=== PATIENT | female | born 1970 | race Caucasian/White ===

== ENCOUNTER 2023-01-21 16:57 | Inpatient (IN) ==
--- NOTE | 2023-01-21 17:12 | ED Triage Note ---
Date of Service January 21, 2023 History of Present Illness This patient was briefly evaluated while in triage. An abbreviated physical exam was performed. This patient is a 52-year-old Female, history of interstitial lung disease, Raynaud's disease and scleroderma with pulmonary involvement, who presents to the ED for evaluation of shortness of breath. Patient follows with [facility]. Patient is currently on a lung transplant list. Her social services coordinator, nurse Rivera, recommended that she come to the emergency department. Lowest O2 saturation was 82%. Baseline oxygen rate via nasal cannula is 5 to 6 L/min. Physical Exam CONSTITUTIONAL: Healthy and well nourished. Patient does not appear in any acute distress. RESPIRATORY: Lung sounds are distant without obvious rhonchi, crackles or wheezing. CARDIOVASCULAR: Regular rate and rhythm with no murmurs, rubs or gallops. INTEGUMENTARY: No rash or other significant dermatologic conditions noted. HEMATOLOGIC: No ecchymosis or petechiae. PSYCHIATRIC: Positive affect. NEUROLOGIC: No focal neurologic deficits noted. Initial orders for labs and / or imaging were placed and patient was placed in the waiting area until a bed is available. Please see further documentation for the full ED course.
[2023-01-21 18:13] LABS: Allen Test Pos (Pos); Base Excess ABG 0.1 mEq/L (-9-1.8); HCO3 ABG 24 mmol/L (19-24); Oxygen Saturation ABG 94.7 % (90-95); PCO2 ABG 34 mmHg (35-46); PO2 ABG 66 mmHg (80-95); pH ABG 7.45 (7.35-7.45)
[2023-01-21 18:19] LABS: Basophils # (auto) 0.04 K/uL (0.00-0.20); Basophils % (auto) 0.4 %; Eosinophils % (auto) 2.7 %; Hemoglobin 13.1 g/dl (12.0-16.0); Immature Granulocytes # (auto) 0.04 K/uL (0.01-0.20); Immature Granulocytes % (auto) 0.4 %; Lymphocytes # (auto) 2.77 K/uL (1.20-3.40); Lymphocytes % (auto) 25.1 %; Mean Corpuscular Hemoglobin 26.3 pg (25.0-34.0); Mean Corpuscular Volume 82.3 fL (80.0-100.0); Mean Platelet Volume 10.9 fL (9.4-12.4); Monocytes # (auto) 0.65 K/uL (0.11-0.59); Monocytes % (auto) 5.9 %; Neutrophils # (auto) 7.23 K/uL (1.40-6.50); Neutrophils % (auto) 65.5 %; Platelet Count 333 K/uL (130-400); RDW Coefficient of Variation 14.3 % (11.5-14.5); RDW Standard Deviation 42.1 fL (36.4-46.3); Red Blood Count 4.98 M/uL (4.20-5.40); White Blood Count 11.03 K/ul (4.8-10.8)
[2023-01-21 18:34] LABS: Albumin Globulin Ratio 1.4 (0.9-2); Albumin Level 4.3 gm/dl (3.4-5.0); BUN Creatinine Ratio 24.5 (10-20); Bilirubin,Total 0.3 mg/dl (0.2-1.0); Calcium 9.8 mg/dl (8.6-10.3); Creatinine Clr Calc Pharmacy 114.3 ml/min; Est GFR (African American) 128.3 ml/min; Est GFR (Non-African American) 110.7 ml/min; Globulin 3.1 gm/dl (2.5-4.0); Potassium 3.9 mmol/L (3.5-5.1); Total Protein 7.4 gm/dl (6.0-8.3)
[2023-01-21 18:40] LABS: Troponin I High Sensitivity 14.2 pg/ml (0-14)
--- NOTE | 2023-01-21 18:45 | XRay Report ---
SINGLE VIEW CHEST CLINICAL HISTORY: Dyspnea FINDINGS: An AP, portable, upright chest radiograph is obtained. No prior studies are available for c omparison at the time of dictation. The examination is degraded by portable technique and patient rot ation. The patient's head partially obscures the apices. Fullness of the antony may represent lymphaden opathy. The heart is top normal for projection. There is multifocal airspace consolidation throughout the right lung and at the left lung base. No large pleural effusion or pneumothorax is seen. The ske letal structures are osteopenic. The bony thorax is grossly intact. IMPRESSION: Multifocal airspace consolidation suggests pneumonia/aspiration pneumonitis. Clinical cor relation will be required and radiographic follow-up to resolution is recommended. ACT 112: Negative or not required by law. Electronically signed by: Alfredo Jaimes M.D. 01/21/2023 6:44 PM
[2023-01-21 18:58] LABS: Partial Thromboplastin Time 28.2 Seconds (21.0-31.0); Prothrombin Time 11.3 Seconds (9.0-12.0)
[2023-01-21] MEDS ORDERED: OPTIRAY 320 125ml IV ONE (19:06)
[2023-01-21 19:18] LABS: Adenovirus PCR Not Detected (NotDetected); Bordetella parapertussis PCR Not Detected (NotDetected); Bordetella pertussis PCR Not Detected (NotDetected); Chlamydia pneumoniae PCR Not Detected (NotDetected); Coronavirus 229E PCR Not Detected (NotDetected); Coronavirus CoV-2 (COVID19)PCR Not Detected (NotDetected); Coronavirus HKU1 PCR Not Detected (NotDetected); Coronavirus NL63 PCR Not Detected (NotDetected); Coronavirus OC43PCR Not Detected (NotDetected); Human Metapneumovirus PCR Not Detected (NotDetected); Influenza A PCR Not Detected (NotDetected); Influenza B PCR Not Detected (NotDetected); Mycoplasma pneumoniae PCR Not Detected (NotDetected); Parainfluenza Virus 1 PCR Not Detected (NotDetected); Parainfluenza Virus 2 PCR Not Detected (NotDetected); Parainfluenza Virus 3 PCR Not Detected (NotDetected); Parainfluenza Virus 4 PCR Not Detected (NotDetected); Respiratory Syncytial VirusPCR Not Detected (NotDetected); Rhinovirus/Enterovirus PCR Not Detected (NotDetected)
[2023-01-21 19:42] LABS: Appearance Urine Clear (Clear); Bacteria Urine Automated Negative (Negative); Bilirubin Urine Negative (Negative); Blood Urine Negative (Negative); Color Urine Yellow; Glucose Urine UA Negative (Negative); Ketones Urine 2+ (Negative); Leukocyte Esterase Urine 2+ (Negative); Nitrite Urine Negative (Negative); Protein Urine Negative (Negative); RBC Urine Automated 0-4 /hpf (0-4); Specific Gravity Urine 1.018 (1.000-1.030); Urobilinogen Urine Negative (Negative); pH Urine 6.5 (4.5-7.5)
--- NOTE | 2023-01-21 19:44 | CT Scan Report ---
Exam(s): CTA CHEST IV Amt: 110 ML OPTIRAY 320 EXAM: CT Angiography Chest With Intravenous Contrast CLINICAL HISTORY: Reason for exam: Dyspnea, interstitial lung disease. TECHNIQUE: Axial computed tomographic angiography images of the chest with intravenous contrast. CTDI is 40.61 mGy and DLP is 570.71 mGy-cm. Automated exposure control was utilized for the study. A dose lowering technique was utilized adhering to the principles of ALARA. MIP reconstructed images were created and reviewed. COMPARISON: No relevant prior studies available. FINDINGS: Pulmonary arteries: Unremarkable. No acute pulmonary embolism. Aorta: No acute findings. No thoracic aortic aneurysm. Lungs: Bilateral airspace consolidations, with peripheral cystic changes, concerning for developing fibrosis/honeycombing. Correlate for interstitial lung disease (usual interstitial fibrosis). Superimposed pneumonia cannot be excluded. Pleural space: Unremarkable. No significant effusion. No pneumothorax. Heart: Unremarkable. No cardiomegaly. No significant pericardial effusion. No evidence of RV dysfunction. Bones/joints: No acute fracture. No dislocation. Soft tissues: Unremarkable. Lymph nodes: Unremarkable. No enlarged lymph nodes. Kidneys and ureters: Nonobstructing 6 mm LEFT upper pole renal stone. IMPRESSION: 1. No acute pulmonary embolism. 2. Bilateral airspace consolidations, with peripheral cystic changes, concerning for developing fibrosis/honeycombing. Correlate for interstitial lung disease (usual interstitial fibrosis). Superimposed pneumonia cannot be excluded. 3. Nonobstructing 6 mm LEFT upper pole renal stone. Electronically signed by: Jesus Nieves MD 01/21/23 19:43 PM
--- NOTE | 2023-01-21 20:18 | Emergency Department Note ---
History of Present Illness General Chief Complaint: Shortness of Breath/Dyspnea Stated Complaint: SOB, ON TRANSPLANT LIST FOR LUNGS Time Seen by Provider: 01/21/23 17:37 History of Present Illness Provider Complaint: shortness of breath Onset (ago): month(s) (1) Consistency/Duration: + progressively worsening Relieved By: + nothing Exacerbated By: + exertion Known history of: other (COVID 1 month ago. Interstitial lung disease.) Associated symptoms: + cough; no chest pain, no wheezing, no sputum production, no orthopnea or no polydipsia Related Data Home oxygen amount: other (6 L nasal cannula at baseline) Home Medications Medication Instructions Recorded Confirmed Type mycophenolate mofetil 500 mg tablet 1,500 mg PO BID 01/28/21 01/21/23 History furosemide 20 mg tablet 20 mg PO DAILY #30 tabs 04/12/21 01/21/23 Rx ambrisentan 10 mg tablet 10 mg PO QAM 07/16/21 01/21/23 History sildenafil (pulm.hypertension) 20 20 mg PO TID 07/16/21 01/21/23 History mg tablet trazodone 50 mg tablet 50 mg PO HS 11/22/21 01/21/23 History omeprazole 20 mg tablet,delayed 20 mg PO BID 03/03/22 01/21/23 History release famotidine 20 mg tablet 20 mg PO BID #60 tabs 04/15/22 01/21/23 Rx Portable Oxygen 05/16/22 01/21/23 History metronidazole 0.75 % topical cream 1 applic topical BID 01/21/23 01/21/23 History Allergies Allergy/AdvReac Type Severity Reaction Status Date / Time povidone-iodine Allergy SWELLING Verified 01/21/23 17:41 [From Betadine] soap [From Betadine] Allergy SWELLING Verified 01/21/23 17:41 Past Med/Surg History Medical History History of anesthesia reaction slow to wake up O2 dependent continuous 3 L at rest 4 L w/ activity Interstitial lung disease from scleroderma-- pulmon dr karthik NICOLAS last visit 10/2021 Raynaud's disease Pulmonary hypertension currently being evaluated for double lung transplant at [facility] 09/2021 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 Surgical History History of laparoscopic appendectomy History of tooth extraction History of skin surgery to remove excess skin after weight loss ---Slow to wake up Family History Grandmother Diabetes Aunt Myocardial infarction Uncle Myocardial infarction Other No family history of adverse response to anesthesia Denies family history of Ovarian cancer Prostate cancer Breast cancer Colorectal cancer Social History Smoking Status: Unknown if ever smoked Second Hand Exposure: No; Do You Dip or Chew Tobacco: No; Hx Alcohol Use: No Hx Substance Use: No Preferred Language: Mohawk Communication Ability: Effective Visual Impairment: No Limitations Hearing Ability: Normal 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 Beliefs That Will Affect Care: None marital status: Current Living Situation: Spouse current occupational status: unemployed How many Children do You have: 3 Feels Safe at Home: Yes Childhood Exposure to Second-Hand Smoke: No Diet: regular caffeine: Yes during the past year weight has: remained stable Dental Care, Regularly: Yes Physical Activity Frequency: 3-4 Times per Week Seatbelt Use: always Sunscreen Use: Yes Assistive Devices: Denture - Upper, Glasses and Oxygen - Continuous Physical Exam 2 Vital Signs: Vital Signs - 24 hr 01/21/23 17:08 01/21/23 17:30 01/21/23 17:55 Temperature 36.9 C Temperature Source Temporal Artery Sc an Pulse Rate 130 H 125 H 126 H Pulse Rate [Apical ] Pulse Rate from Sp O2 Sensor 129 H Respiratory Rate 22 41 H Respiratory Effort / Characteristics Non-Labored Sponta neous Respiratory Depth Normal Blood Pressure 95/73 L Blood Pressure [Ri ght Arm] Blood Pressure Francesca n 80 Blood Pressure Francesca n [Right Arm] Pulse Oximetry 89 L 90 Oxygen Delivery Me thod Nasal Cannula Nasal Cannula Oxygen Flow Rate 8 4 Sepsis Recent Feve r Within 48 Hours No Sepsis New/Unexpla ined Change in Men irvin Status N/A Sepsis Action Take n by Nursing No Action Required Oxygen Flow Rate - Titration Pulse Oximetry Pos t Tiitration 01/21/23 18:00 01/21/23 18:01 01/21/23 18:01 Temperature Temperature Source Pulse Rate Pulse Rate [Apical ] 125 H Pulse Rate from Sp O2 Sensor Respiratory Rate 26 H Respiratory Effort / Characteristics Respiratory Depth Blood Pressure Blood Pressure [Ri ght Arm] 114/78 Blood Pressure Francesca n Blood Pressure Francesca n [Right Arm] 90 Pulse Oximetry 92 Oxygen Delivery Me thod Nasal Cannula Nasal Cannula Nasal Cannula Oxygen Flow Rate 6 Sepsis Recent Feve r Within 48 Hours Sepsis New/Unexpla ined Change in Men irvin Status Sepsis Action Take n by Nursing Oxygen Flow Rate - Titration 6 Pulse Oximetry Pos t Tiitration 91 01/21/23 18:30 01/21/23 18:30 01/21/23 19:00 Temperature Temperature Source Pulse Rate 127 H 119 H Pulse Rate [Apical ] Pulse Rate from Sp O2 Sensor 127 H Respiratory Rate 33 H 22 Respiratory Effort / Characteristics Respiratory Depth Blood Pressure 108/86 Blood Pressure [Ri ght Arm] Blood Pressure Francesca n 92 Blood Pressure Francesca n [Right Arm] Pulse Oximetry 93 Oxygen Delivery Me thod Nasal Cannula Oxygen Flow Rate 6 Sepsis Recent Feve r Within 48 Hours Sepsis New/Unexpla ined Change in Men irvin Status Sepsis Action Take n by Nursing Oxygen Flow Rate - Titration Pulse Oximetry Pos t Tiitration 01/21/23 19:22 01/21/23 19:22 01/21/23 19:30 Temperature Temperature Source Pulse Rate 120 H Pulse Rate [Apical ] Pulse Rate from Sp O2 Sensor 121 H Respiratory Rate 25 H Respiratory Effort / Characteristics Respiratory Depth Blood Pressure 110/83 98/82 L Blood Pressure [Ri ght Arm] Blood Pressure Francesca n 91 88 Blood Pressure Francesca n [Right Arm] Pulse Oximetry 91 Oxygen Delivery Me thod Oxygen Flow Rate Sepsis Recent Feve r Within 48 Hours Sepsis New/Unexpla ined Change in Men irvin Status Sepsis Action Take n by Nursing Oxygen Flow Rate - Titration Pulse Oximetry Pos t Tiitration 01/21/23 19:30 Temperature Temperature Source Pulse Rate 118 H Pulse Rate [Apical ] Pulse Rate from Sp O2 Sensor 122 H Respiratory Rate 20 Respiratory Effort / Characteristics Respiratory Depth Blood Pressure Blood Pressure [Ri ght Arm] Blood Pressure Francesca n Blood Pressure Francesca n [Right Arm] Pulse Oximetry 97 Oxygen Delivery Me thod Oxygen Flow Rate Sepsis Recent Feve r Within 48 Hours Sepsis New/Unexpla ined Change in Men irvin Status Sepsis Action Take n by Nursing Oxygen Flow Rate - Titration Pulse Oximetry Pos t Tiitration Physical Exam: Physical Exam GENERAL: oriented to person, place, and time. appears well-developed and well- nourished. HENT: Exam performed. - Head: Normocephalic and atraumatic. EYES: Conjunctivae and EOM are normal. Right eye exhibits no discharge. Left eye exhibits no discharge. No scleral icterus. NECK: Normal range of motion. Neck supple. No JVD present. CV: Tachycardic rate, regular rhythm, normal heart sounds and intact distal pulses. There is no peripheral edema. Palpable radial pulses bue. PULM/CHEST: Rhonchi bilaterally. ABD: The abdomen is soft. There is no tenderness. NEURO: Motor and sensation grossly intact. SKIN: Skin is warm and dry. He is not diaphoretic. PSYCH: normal mood and affect. Behavior is normal. Judgment and thought content normal. Course Course 1736: The patient was evaluated in room C2. A complete history and physical exam was performed Cardiac monitoring: An order was placed for continuous cardiac monitoring. The monitor shows a rate of 110 with sinus tachycardia rhythm interpreted by me 2027: Vital signs stable on supplemental oxygen 6 L which is the patient's baseline. White blood cell count 11.03 neutrophils 7.23. Coagulation studies within normal limits. ABG shows a arterial pH 7.45 pCO2 34 pO2 66 bicarb 24 oxygen saturation 94.7 on 6 L of oxygen. High-sensitivity troponin 14.2 BNP 275. BioFire negative. Urinalysis negative. Imaging shows no acute pulmonary embolus bilateral airspace consolidations concerning for developing fibrosis/honeycombing with history of interstitial lung disease. Superimposed pneumonia cannot be excluded. I called the patient's on-call pulmonology team at [facility] [phone]. I spoke with Hattie Mariee NP. She states she is not very familiar with the patient's case but got a email from a Lesli VET TECH now about the patient and she states the patient might need to be transferred. She recommends calling the transfer center [phone] and speaking with a Dr. Treviño who is on-call. 2044: Vital signs stable on supplemental oxygen at patient's baseline. Spoke with Dr. Kamila Prasad pulmonology who is familiar with the patient's case. He states he does not see a need to transfer the patient at this time and he states that there are no beds available at his facility at this time anyways. He recommends that the patient be admitted and be treated for pneumonia with cefepime and vancomycin at this time. He recommends patient have an echo in the morning. He states his team will contact the admitting team in the morning to review the results of the echo and determine further care for the patient. He recommends no steroids at this time. 2054: Discussed the case with Dr. Chapman [facility] hospitalist will admit the patient. Administered Medications Discontinued Medications Ioversol (Optiray 320 125ml) 119 ml IV ONCE ONE Stop: 01/21/23 19:07 Last Admin: 01/21/23 19:07 Dose: 119 ml Documented By: ARLEN Medical Decision Making Laboratory Data Attestation: I reviewed the patient's lab results. 01/21/23 17:49 01/21/23 17:49 Lab Results 01/21/23 01/21/23 01/21/23 Range/Units 17:49 17:53 18:02 WBC 11.03 H (4.8-10.8) K/ul RBC 4.98 (4.20-5.40) M/uL Hgb 13.1 (12.0-16.0) g/dl Hct 41.0 (37.0-47.0) % MCV 82.3 (80.0-100.0) fL MCH 26.3 (25.0-34.0) pg MCHC 32.0 (32.0-36.0) g/dL RDW Std Deviation 42.1 (36.4-46.3) fL RDW Coeff of [place] 14.3 (11.5-14.5) % Plt Count 333 (130-400) K/uL MPV 10.9 (9.4-12.4) fL Immature Gran % (Auto) 0.4 % Neut % (Auto) 65.5 % Lymph % (Auto) 25.1 % [place] % (Auto) 5.9 % Eos % (Auto) 2.7 % Baso % (Auto) 0.4 % Neut # (Auto) 7.23 H (1.40-6.50) K/uL Lymph # (Auto) 2.77 (1.20-3.40) K/uL [place] # (Auto) 0.65 H (0.11-0.59) K/uL Eos # (Auto) 0.30 (0.00-0.50) K/uL Baso # (Auto) 0.04 (0.00-0.20) K/uL Immature Gran # (Auto) 0.04 (0.01-0.20) K/uL PT 11.3 (9.0-12.0) Seconds INR 1.0 (0.9-1.1) APTT 28.2 (21.0-31.0) Seconds PTT Ratio 1.0 ABG pH 7.45 (7.35-7.45) ABG pCO2 34 L (35-46) mmHg ABG pO2 66 L (80-95) mmHg ABG HCO3 24 (19-24) mmol/L ABG O2 Saturation 94.7 (90-95) % ABG Base Excess 0.1 (-9-1.8) mEq/L Champ Test Pos (Pos) Oxygen Given 6L O2 Sodium 139 (136-145) mmol/L Potassium 3.9 (3.5-5.1) mmol/L Chloride 103 (98-107) mmol/L Carbon Dioxide 27 (21-32) mmol/L Anion Gap 9 (3-11) BUN 13 (6-23) mg/dl Creatinine 0.53 L (0.6-1.2) mg/dl Est Cr Clr Drug Dosing 114.3 ml/min Est GFR ( Amer) 128.3 ml/min Est GFR (Non-Af Amer) 110.7 ml/min BUN/Creatinine Ratio 24.5 H (10-20) Glucose 95 (70-99(Fasting)) mg/dl Calcium 9.8 (8.6-10.3) mg/dl Total Bilirubin 0.3 (0.2-1.0) mg/dl AST 17 (13-39) U/L ALT 16 (7-52) U/L Alkaline Phosphatase 93 (34-104) U/L Troponin I High Sens 14.2 H (0-14) pg/ml B-Natriuretic Peptide 275 H (0-100) pg/ml Total Protein 7.4 (6.0-8.3) gm/dl Albumin 4.3 (3.4-5.0) gm/dl Globulin 3.1 (2.5-4.0) gm/dl Albumin/Globulin Ratio 1.4 (0.9-2) Urine Color Urine Appearance (Clear) Urine pH (4.5-7.5) Ur Specific [place] (1.000-1.030) Urine Protein (Negative) Urine Glucose (UA) (Negative) Urine Ketones (Negative) Urine Blood (Negative) Urine Nitrite (Negative) Urine Bilirubin (Negative) Urine Urobilinogen (Negative) Ur Leukocyte Esterase (Negative) Urine WBC (Auto) (0-5) /hpf Urine RBC (Auto) (0-4) /hpf U Hyaline Cast (Auto) (0-5) /lpf U Epithel Cells (Auto) (0-5) /lpf Urine Bacteria (Auto) (Negative) Adenovirus (PCR) Not Detected (NotDetected) B. pertussis DNA (PCR) Not Detected (NotDetected) B.parapertussis DNA PCR Not Detected (NotDetected) C. pneumoniae DNA (PCR) Not Detected (NotDetected) Coronavirus OC43 (PCR) Not Detected (NotDetected) Coronavirus HKU1 (PCR) Not Detected (NotDetected) Coronavirus 229E (PCR) Not Detected (NotDetected) SARS-CoV-2 (PCR) Not Detected (NotDetected) Coronavirus NL63 (PCR) Not Detected (NotDetected) Human Metapneumovir PCR Not Detected (NotDetected) Influenza Type A (PCR) Not Detected (NotDetected) Influenza Type B (PCR) Not Detected (NotDetected) M. pneumoniae (PCR) Not Detected (NotDetected) Parainfluenza 1 (PCR) Not Detected (NotDetected) Parainfluenza 2 (PCR) Not Detected (NotDetected) Parainfluenza 3 (PCR) Not Detected (NotDetected) Parainfluenza 4 (PCR) Not Detected (NotDetected) RSV (PCR) Not Detected (NotDetected) Entero/Rhino (PCR) Not Detected (NotDetected) 01/21/23 Range/Units 19:22 WBC (4.8-10.8) K/ul RBC (4.20-5.40) M/uL Hgb (12.0-16.0) g/dl Hct (37.0-47.0) % MCV (80.0-100.0) fL MCH (25.0-34.0) pg MCHC (32.0-36.0) g/dL RDW Std Deviation (36.4-46.3) fL RDW Coeff of Nubia (11.5-14.5) % Plt Count (130-400) K/uL MPV (9.4-12.4) fL Immature Gran % (Auto) % Neut % (Auto) % Lymph % (Auto) % [place] % (Auto) % Eos % (Auto) % Baso % (Auto) % Neut # (Auto) (1.40-6.50) K/uL Lymph # (Auto) (1.20-3.40) K/uL [place] # (Auto) (0.11-0.59) K/uL Eos # (Auto) (0.00-0.50) K/uL Baso # (Auto) (0.00-0.20) K/uL Immature Gran # (Auto) (0.01-0.20) K/uL PT (9.0-12.0) Seconds INR (0.9-1.1) APTT (21.0-31.0) Seconds PTT Ratio ABG pH (7.35-7.45) ABG pCO2 (35-46) mmHg ABG pO2 (80-95) mmHg ABG HCO3 (19-24) mmol/L ABG O2 Saturation (90-95) % ABG Base Excess (-9-1.8) mEq/L Champ Test (Pos) Oxygen Given Sodium (136-145) mmol/L Potassium (3.5-5.1) mmol/L Chloride (98-107) mmol/L Carbon Dioxide (21-32) mmol/L Anion Gap (3-11) BUN (6-23) mg/dl Creatinine (0.6-1.2) mg/dl Est Cr Clr Drug Dosing ml/min Est GFR ( Amer) ml/min Est GFR (Non-Af Amer) ml/min BUN/Creatinine Ratio (10-20) Glucose (70-99(Fasting)) mg/dl Calcium (8.6-10.3) mg/dl Total Bilirubin (0.2-1.0) mg/dl AST (13-39) U/L ALT (7-52) U/L Alkaline Phosphatase (34-104) U/L Troponin I High Sens (0-14) pg/ml B-Natriuretic Peptide (0-100) pg/ml Total Protein (6.0-8.3) gm/dl Albumin (3.4-5.0) gm/dl Globulin (2.5-4.0) gm/dl Albumin/Globulin Ratio (0.9-2) Urine Color Yellow Urine Appearance Clear (Clear) Urine pH 6.5 (4.5-7.5) Ur Specific [place] 1.018 (1.000-1.030) Urine Protein Negative (Negative) Urine Glucose (UA) Negative (Negative) Urine Ketones 2+ H (Negative) Urine Blood Negative (Negative) Urine Nitrite Negative (Negative) Urine Bilirubin Negative (Negative) Urine Urobilinogen Negative (Negative) Ur Leukocyte Esterase 2+ H (Negative) Urine WBC (Auto) 10-30 H (0-5) /hpf Urine RBC (Auto) 0-4 (0-4) /hpf U Hyaline Cast (Auto) 1-5 (0-5) /lpf U Epithel Cells (Auto) 10-20 H (0-5) /lpf Urine Bacteria (Auto) Negative (Negative) Adenovirus (PCR) (NotDetected) B. pertussis DNA (PCR) (NotDetected) B.parapertussis DNA PCR (NotDetected) C. pneumoniae DNA (PCR) (NotDetected) Coronavirus OC43 (PCR) (NotDetected) Coronavirus HKU1 (PCR) (NotDetected) Coronavirus 229E (PCR) (NotDetected) SARS-CoV-2 (PCR) (NotDetected) Coronavirus NL63 (PCR) (NotDetected) Human Metapneumovir PCR (NotDetected) Influenza Type A (PCR) (NotDetected) Influenza Type B (PCR) (NotDetected) M. pneumoniae (PCR) (NotDetected) Parainfluenza 1 (PCR) (NotDetected) Parainfluenza 2 (PCR) (NotDetected) Parainfluenza 3 (PCR) (NotDetected) Parainfluenza 4 (PCR) (NotDetected) RSV (PCR) (NotDetected) Entero/Rhino (PCR) (NotDetected) Imaging Data Radiologist's Impression: Chest CTA 01/21/23 17:16 Exam(s): CTA CHEST IV Amt: 110 ML OPTIRAY 320 EXAM: CT Angiography Chest With Intravenous Contrast CLINICAL HISTORY: Reason for exam: Dyspnea, interstitial lung disease. TECHNIQUE: Axial computed tomographic angiography images of the chest with intravenous contrast. CTDI is 40.61 mGy and DLP is 570.71 mGy-cm. Automated exposure control was utilized for the study. A dose lowering technique was utilized adhering to the principles of ALARA. MIP reconstructed images were created and reviewed. COMPARISON: No relevant prior studies available. FINDINGS: Pulmonary arteries: Unremarkable. No acute pulmonary embolism. Aorta: No acute findings. No thoracic aortic aneurysm. Lungs: Bilateral airspace consolidations, with peripheral cystic changes, concerning for developing fibrosis/honeycombing. Correlate for interstitial lung disease (usual interstitial fibrosis). Superimposed pneumonia cannot be excluded. Pleural space: Unremarkable. No significant effusion. No pneumothorax. Heart: Unremarkable. No cardiomegaly. No significant pericardial effusion. No evidence of RV dysfunction. Bones/joints: No acute fracture. No dislocation. Soft tissues: Unremarkable. Lymph nodes: Unremarkable. No enlarged lymph nodes. Kidneys and ureters: Nonobstructing 6 mm LEFT upper pole renal stone. IMPRESSION: 1. No acute pulmonary embolism. 2. Bilateral airspace consolidations, with peripheral cystic changes, concerning for developing fibrosis/honeycombing. Correlate for interstitial lung disease (usual interstitial fibrosis). Superimposed pneumonia cannot be excluded. 3. Nonobstructing 6 mm LEFT upper pole renal stone. Electronically signed by: Jesus Nieves MD 01/21/23 19:43 PM Chest X-Ray 01/21/23 18:17 SINGLE VIEW CHEST CLINICAL HISTORY: Dyspnea FINDINGS: An AP, portable, upright chest radiograph is obtained. No prior studies are available for comparison at the time of dictation. The examination is degraded by portable technique and patient rotation. The patient's head partially obscures the apices. Fullness of the antony may represent lymphadenopathy. The heart is top normal for projection. There is multifocal airspace consolidation throughout the right lung and at the left lung base. No large pleural effusion or pneumothorax is seen. The skeletal structures are osteopenic. The bony thorax is grossly intact. IMPRESSION: Multifocal airspace consolidation suggests pneumonia/aspiration pneumonitis. Clinical correlation will be required and radiographic follow-up to resolution is recommended. ACT 112: Negative or not required by law. Electronically signed by: Alfredo Jaimes M.D. 01/21/2023 6:44 PM ECG Data Attestation: I personally reviewed and interpreted this ECG as follows: Interpretation: Sinus tachycardia with rate of 127. NH 174 QRS [address] elevation or ST depression. [facility] Narrative 1737: The patient was evaluated in room C2. A complete history and physical exam was performed Cardiac monitoring: An order was placed for continuous cardiac monitoring. The monitor shows a rate of 110 with sinus tachycardia rhythm interpreted by [place] 2027: Vital signs stable on supplemental oxygen 6 L which is the patient's baseline. White blood cell count 11.03 neutrophils 7.23. Coagulation studies within normal limits. ABG shows a arterial pH 7.45 pCO2 34 pO2 66 bicarb 24 oxygen saturation 94.7 on 6 L of oxygen. High-sensitivity troponin 14.2 BNP 275. BioFire negative. Urinalysis negative. Imaging shows no acute pulmonary embolus bilateral airspace consolidations concerning for developing fibrosis/honeycombing with history of interstitial lung disease. Superimposed pneumonia cannot be excluded. I called the patient's on-call pulmonology team at [facility] [phone]. I spoke with Hattie Mariee NP. She states she is not very familiar with the patient's case but got a email from a Lesli VET TECH now about the patient and she states the patient might need to be transferred. She recommends calling the transfer center [phone] and speaking with a Dr. Treviño who is on-call. 2044: Vital signs stable on supplemental oxygen at patient's baseline. Spoke with Dr. Kamila Prasad pulmonology who is familiar with the patient's case. He states he does not see a need to transfer the patient at this time and he states that there are no beds available at his facility at this time anyways. He recommends that the patient be admitted and be treated for pneumonia with cefepime and vancomycin at this time. He recommends patient have an echo in the morning. He states his team will contact the admitting team in the morning to review the results of the echo and determine further care for the patient. He recommends no steroids at this time. 2054: Discussed the case with Dr. Ari Blanco hospitalist will admit the patient. Impression & Plan Scleroderma with pulmonary involvement, Pneumonia, Interstitial lung disease Discharge Plan Visit Data Chief Complaint: Shortness of Breath/Dyspnea Stated Complaint: SOB, ON TRANSPLANT LIST FOR LUNGS ED Provider: Mitchell Hodges Discharge Problem: Scleroderma with pulmonary involvement, Pneumonia, Interstitial lung disease Patient Disposition: Admitted As Inpatient Forms Stand Alone Forms: My [facility] Prescriptions Prescriptions: No Action omeprazole 20 mg tablet,delayed release (DR/EC) 20 mg PO BID famotidine 20 mg tablet 20 mg PO BID Qty: 60 2RF (DME) Portable Oxygen Misc See Rx Instructions .Route Rx Instructions: continous-scleraderma 3lpm mycophenolate mofetil 500 mg tablet 1,500 mg PO BID ambrisentan 10 mg tablet 10 mg PO QAM sildenafil (pulm.hypertension) 20 mg tablet 20 mg PO TID Rx Instructions: administer doses at least 4-6 hours apart furosemide 20 mg tablet 20 mg PO DAILY Qty: 30 2RF metronidazole 0.75 % cream 1 applic TOPICAL BID trazodone 50 mg Tablet 50 mg PO HS Referrals Referrals: Peter Larsen DO [Primary Care Provider] - Discharge Problem: Pneumonia Qualifiers: Pneumonia type: due to unspecified organism Laterality: unspecified laterality Lung location: unspecified part of lung Qualified Code(s): J18.9 - Pneumonia, unspecified organism
[2023-01-21] MEDS ORDERED: VANCOMYCIN HCL 1,000 MG in SODIUM CHLORIDE 0.9% 500 ML IV STA (20:50)
[2023-01-21] MEDS ORDERED: CEFEPIME 2,000 MG/20 ML VIAL IV STA (20:50)
[2023-01-21] MEDS ORDERED: VANCOMYCIN CONSULT ACTIVE PRN ×2 (20:50→22:59)
[2023-01-21] MEDS ORDERED: MYCOPHENOLATE MOFETIL 250 MG CAP PO STA (21:25)
[2023-01-21] MEDS ORDERED: SILDENAFIL CITRATE 20 MG TABLET PO STA (21:25)
[2023-01-21] MEDS ORDERED: traZODone HCL 50 MG TAB PO ONE (21:25)
--- NOTE | 2023-01-21 21:28 | History & Physical Report ---
Date of Service January 21, 2023 Assessment & Plan (1) Pneumonia: Plan: 52yo female with history of systemic scleroderma, interstitial lung disease, chronic hypoxic respiratory failure on home O2 presenting with ongoing progressive dyspnea. Symptoms present x 1 month with acute worsening over the last 2 weeks. Patient follows at [facility] - Dr. Treviño was contacted by ER attending and has assisted with formulating the plan of care. His team will contact our hospitalist team tomorrow. Concern for PNA -Admit to medical with telemetry -Follow cultures -Check procalcitonin -Check sputum sample -Antibiotic coverage with Vancomycin and Cefepime -Check MRSA Nares -Check 2D echo (2) Interstitial lung disease: Plan: Patient with ILD, chronic hypoxic respiratory failure and pulmonary hypertension. She follows at [facility] -Continue Sildenafil -Continue Cellcept -Supplemental O2 -Patient may take her home Ambrisentan when she brings it History of Present Illness Chief Complaint: shortness of breath Primary Care Provider: Peter Larsen DO Yarely Stephens is a pleasant 52yo female presenting with shortness of breath. Patient has history of advanced scleroderma on immunosuppression therapy with CellCept, interstitial lung disease with chronic hypoxic respiratory failure on home O2 (5.5L at rest and 7L with ambulation). She had Covid-19 infection in November which was mild - no steroids, Remdesivir or anti-viral therapy needed. She reports that her breathing has never returned to baseline after having Covid. She has had progressive SOB and dyspnea with minimal exertion which has become much worse over the last two weeks. She has increased her supplemental O2 to 6L at rest and 8L with ambulation. She denies fever but has fatigue, poor appetite and decreased oral intake as well as chest tightness and cough - usually dry but occasionally productive for clear or brown sputum. She additionally reports worsening bilateral LE edema which does not improve with elevation and orthopnea. Patient follows with Pulmonary Clinic/Transplant services at [facility] - Dr. Treviño. She has been listed for transplant but is currently on hold. Dr. Treviño was contacted by the ER provider and provided instructions as below. She follows with Rheumatology and Dermatology for her Scleroderma. In the ER patient afebrile, tachycardic, hypoxic on arrival at 89% on 8L NC. Presently she is improved - 97% on 6L ER Course: Cefepime and Vancomycin ordered - not yet administered Allergies Allergy/AdvReac Type Severity Reaction Status Date / Time povidone-iodine Allergy SWELLING Verified 01/21/23 17:41 [From Betadine] soap [From Betadine] Allergy SWELLING Verified 01/21/23 17:41 Home Medications Medication Instructions Recorded Confirmed Type mycophenolate mofetil 500 mg tablet 1,500 mg PO BID 01/28/21 01/21/23 History furosemide 20 mg tablet 20 mg PO DAILY #30 tabs 04/12/21 01/21/23 Rx ambrisentan 10 mg tablet 10 mg PO QAM 07/16/21 01/21/23 History sildenafil (pulm.hypertension) 20 20 mg PO TID 07/16/21 01/21/23 History mg tablet trazodone 50 mg tablet 50 mg PO HS 11/22/21 01/21/23 History omeprazole 20 mg tablet,delayed 20 mg PO BID 03/03/22 01/21/23 History release famotidine 20 mg tablet 20 mg PO BID #60 tabs 04/15/22 01/21/23 Rx Portable Oxygen 05/16/22 01/21/23 History metronidazole 0.75 % topical cream 1 applic topical BID 01/21/23 01/21/23 History Past Med/Surg History Medical History History of anesthesia reaction slow to wake up O2 dependent continuous 3 L at rest 4 L w/ activity Interstitial lung disease from scleroderma-- pulmon dr karthik NICOLAS last visit 10/2021 Raynaud's disease Pulmonary hypertension currently being evaluated for double lung transplant at [facility] 09/2021 Scleroderma with pulmonary involvement 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 Dr sameer NICOLAS Surgical History History of laparoscopic appendectomy History of tooth extraction History of skin surgery to remove excess skin after weight loss ---Slow to wake up Family History Grandmother Diabetes Aunt Myocardial infarction Uncle Myocardial infarction Other No family history of adverse response to anesthesia Denies family history of Ovarian cancer Prostate cancer Breast cancer Colorectal cancer Social History Smoking Status: Unknown if ever smoked Second Hand Exposure: No; Do You Dip or Chew Tobacco: No; Hx Alcohol Use: No Hx Substance Use: No Preferred Language: Mauritian Communication Ability: Effective Visual Impairment: No Limitations Hearing Ability: Normal Pattern Puncher Required: No Beliefs That Will Affect Care: None marital status: Current Living Situation: Spouse current occupational status: unemployed How many Children do You have: 3 Other Information That Helps Us Care for You: No Feels Safe at Home: Yes Safety Concerns: Feels Safe At This Time Childhood Exposure to Second-Hand Smoke: No Diet: regular caffeine: Yes during the past year weight has: remained stable Dental Care, Regularly: Yes Physical Activity Frequency: 3-4 Times per Week Seatbelt Use: always Sunscreen Use: Yes Assistive Devices: Denture - Upper, Glasses and Oxygen - Continuous Review of Systems Review of Systems: All systems reviewed & are unremarkable except as noted in HPI & below Physical Exam Physical Exam: General: patient sitting upright in bed, NAD, non-toxic in appearance, AA&O x 4 Skin: warm, dry, intact, tightening of skin of bilateral fingers and anterior chest consistent with scleroderma diagnosis, no bleeding or evidence of infection HEENT: NC/AT, PERRL, EOMI, anicteric sclera, conjunctiva without injection, external ear normal to inspection and nontender, nares patent, slightly dry mucus membranes, dentition intact, no oropharyngeal lesions, neck supple, trachea midline, no LAD, no thyromegaly, no JVD Heart: +S1/S2, regular, tachycardic, no m/r/g Lungs: patient appears mildly tachypneic but in NAD, speaking in complete sentences, equal air entry bilaterally with normal chest wall mechanics, diffuse end-inspiratory crackles appreciated bilaterallyl R > L, no rhonchi or wheezes, diminished breath sounds at right base Abd: +BS, soft, NT/ND, no masses/organomegaly/ascites Ext: warm, 2+ pulses in UE/LE bilaterally, digital clubbing appreciated on bilateral fingers, 1+ non-pitting edema of bilateral LE Neuro: nonfocal, patient AA&O x 4, speech intact, no facial droop, moving all extremities on command with equal strength 5/5 Results & Data Results & Data Vital Signs (Past 12 Hours) Vital Signs Temp Pulse Pulse Resp BP BP Pulse Ox 01/21/23 19:30 118 H 20 97 01/21/23 19:30 98/82 L 01/21/23 19:22 120 H 25 H 91 01/21/23 19:22 110/83 01/21/23 19:00 119 H 22 01/21/23 18:30 127 H 33 H 93 01/21/23 18:30 108/86 01/21/23 18:01 01/21/23 18:01 125 H 26 H 114/78 92 01/21/23 18:00 01/21/23 17:55 126 H 01/21/23 17:30 125 H 41 H 90 01/21/23 17:08 36.9 C 130 H 22 95/73 L 89 L O2 Del Method O2 Flow Rate 01/21/23 19:30 01/21/23 19:30 01/21/23 19:22 01/21/23 19:22 01/21/23 19:00 01/21/23 18:30 Nasal Cannula 6 01/21/23 18:30 01/21/23 18:01 Nasal Cannula 01/21/23 18:01 Nasal Cannula 6 01/21/23 18:00 Nasal Cannula 01/21/23 17:55 01/21/23 17:30 Nasal Cannula 4 01/21/23 17:08 Nasal Cannula 8 Laboratory Results Laboratory Results WBC 11.03 K/ul (4.8-10.8) H 01/21/23 17:49 RBC 4.98 M/uL (4.20-5.40) 01/21/23 17:49 Hgb 13.1 g/dl (12.0-16.0) 01/21/23 17:49 Hct 41.0 % (37.0-47.0) 01/21/23 17:49 MCV 82.3 fL (80.0-100.0) 01/21/23 17:49 MCH 26.3 pg (25.0-34.0) 01/21/23 17:49 MCHC 32.0 g/dL (32.0-36.0) 01/21/23 17:49 RDW Std Deviation 42.1 fL (36.4-46.3) 01/21/23 17:49 RDW Coeff of Nubia 14.3 % (11.5-14.5) 01/21/23 17:49 Plt Count 333 K/uL (130-400) 01/21/23 17:49 MPV 10.9 fL (9.4-12.4) 01/21/23 17:49 Immature Gran % (Auto) 0.4 % 01/21/23 17:49 Neut % (Auto) 65.5 % 01/21/23 17:49 Lymph % (Auto) 25.1 % 01/21/23 17:49 [place] % (Auto) 5.9 % 01/21/23 17:49 Eos % (Auto) 2.7 % 01/21/23 17:49 Baso % (Auto) 0.4 % 01/21/23 17:49 Neut # (Auto) 7.23 K/uL (1.40-6.50) H 01/21/23 17:49 Lymph # (Auto) 2.77 K/uL (1.20-3.40) 01/21/23 17:49 [place] # (Auto) 0.65 K/uL (0.11-0.59) H 01/21/23 17:49 Eos # (Auto) 0.30 K/uL (0.00-0.50) 01/21/23 17:49 Baso # (Auto) 0.04 K/uL (0.00-0.20) 01/21/23 17:49 Immature Gran # (Auto) 0.04 K/uL (0.01-0.20) 01/21/23 17:49 PT 11.3 Seconds (9.0-12.0) 01/21/23 17:49 INR 1.0 (0.9-1.1) 01/21/23 17:49 APTT 28.2 Seconds (21.0-31.0) 01/21/23 17:49 PTT Ratio 1.0 01/21/23 17:49 ABG pH 7.45 (7.35-7.45) 01/21/23 18:02 ABG pCO2 34 mmHg (35-46) L 01/21/23 18:02 ABG pO2 66 mmHg (80-95) L 01/21/23 18:02 ABG HCO3 24 mmol/L (19-24) 01/21/23 18:02 ABG O2 Saturation 94.7 % (90-95) 01/21/23 18:02 ABG Base Excess 0.1 mEq/L (-9-1.8) 01/21/23 18:02 Champ Test Pos (Pos) 01/21/23 18:02 Oxygen Given 6L O2 01/21/23 18:02 Sodium 139 mmol/L (136-145) 01/21/23 17:49 Potassium 3.9 mmol/L (3.5-5.1) 01/21/23 17:49 Chloride 103 mmol/L (98-107) 01/21/23 17:49 Carbon Dioxide 27 mmol/L (21-32) 01/21/23 17:49 Anion Gap 9 (3-11) 01/21/23 17:49 BUN 13 mg/dl (6-23) 01/21/23 17:49 Creatinine 0.53 mg/dl (0.6-1.2) L 01/21/23 17:49 Est Cr Clr Drug Dosing 114.3 ml/min 01/21/23 17:49 Est GFR ( Amer) 128.3 ml/min 01/21/23 17:49 Est GFR (Non-Af Amer) 110.7 ml/min 01/21/23 17:49 BUN/Creatinine Ratio 24.5 (10-20) H 01/21/23 17:49 Glucose 95 mg/dl (70-99(Fasting)) 01/21/23 17:49 Calcium 9.8 mg/dl (8.6-10.3) 01/21/23 17:49 Total Bilirubin 0.3 mg/dl (0.2-1.0) 01/21/23 17:49 AST 17 U/L (13-39) 01/21/23 17:49 ALT 16 U/L (7-52) 01/21/23 17:49 Alkaline Phosphatase 93 U/L (34-104) 01/21/23 17:49 Troponin I High Sens 14.2 pg/ml (0-14) H 01/21/23 17:49 B-Natriuretic Peptide 275 pg/ml (0-100) H 01/21/23 17:49 Total Protein 7.4 gm/dl (6.0-8.3) 01/21/23 17:49 Albumin 4.3 gm/dl (3.4-5.0) 01/21/23 17:49 Globulin 3.1 gm/dl (2.5-4.0) 01/21/23 17:49 Albumin/Globulin Ratio 1.4 (0.9-2) 01/21/23 17:49 Urine Color Yellow 01/21/23 19:22 Urine Appearance Clear (Clear) 01/21/23 19:22 Urine pH 6.5 (4.5-7.5) 01/21/23 19:22 Ur Specific [place] 1.018 (1.000-1.030) 01/21/23 19:22 Urine Protein Negative (Negative) 01/21/23 19:22 Urine Glucose (UA) Negative (Negative) 01/21/23 19:22 Urine Ketones 2+ (Negative) H 01/21/23 19:22 Urine Blood Negative (Negative) 01/21/23 19:22 Urine Nitrite Negative (Negative) 01/21/23 19: Urine Bilirubin Negative (Negative) 01/21/23 19:22 Urine Urobilinogen Negative (Negative) 01/21/23 19:22 Ur Leukocyte Esterase 2+ (Negative) H 01/21/23 19:22 Urine WBC (Auto) 10-30 /hpf (0-5) H 01/21/23 19:22 Urine RBC (Auto) 0-4 /hpf (0-4) 01/21/23 19:22 U Hyaline Cast (Auto) 1-5 /lpf (0-5) 01/21/23 19:22 U Epithel Cells (Auto) 10-20 /lpf (0-5) H 01/21/23 19:22 Urine Bacteria (Auto) Negative (Negative) 01/21/23 19:22 Adenovirus (PCR) Not Detected (NotDetected) 01/21/23 17:53 B. pertussis DNA (PCR) Not Detected (NotDetected) 01/21/23 17:53 B.parapertussis DNA PCR Not Detected (NotDetected) 01/21/23 17:53 C. pneumoniae DNA (PCR) Not Detected (NotDetected) 01/21/23 17:53 Coronavirus OC43 (PCR) Not Detected (NotDetected) 01/21/23 17:53 Coronavirus HKU1 (PCR) Not Detected (NotDetected) 01/21/23 17:53 Coronavirus 229E (PCR) Not Detected (NotDetected) 01/21/23 17:53 SARS-CoV-2 (PCR) Not Detected (NotDetected) 01/21/23 17:53 Coronavirus NL63 (PCR) Not Detected (NotDetected) 01/21/23 17:53 Human Metapneumovir PCR Not Detected (NotDetected) 01/21/23 17:53 Influenza Type A (PCR) Not Detected (NotDetected) 01/21/23 17:53 Influenza Type B (PCR) Not Detected (NotDetected) 01/21/23 17:53 M. pneumoniae (PCR) Not Detected (NotDetected) 01/21/23 17:53 Parainfluenza 1 (PCR) Not Detected (NotDetected) 01/21/23 17:53 Parainfluenza 2 (PCR) Not Detected (NotDetected) 01/21/23 17:53 Parainfluenza 3 (PCR) Not Detected (NotDetected) 01/21/23 17:53 Parainfluenza 4 (PCR) Not Detected (NotDetected) 01/21/23 17:53 RSV (PCR) Not Detected (NotDetected) 01/21/23 17:53 Entero/Rhino (PCR) Not Detected (NotDetected) 01/21/23 17:53 Impressions Chest CTA 01/21/23 17:16 Exam(s): CTA CHEST IV Amt: 110 ML OPTIRAY 320 EXAM: CT Angiography Chest With Intravenous Contrast CLINICAL HISTORY: Reason for exam: Dyspnea, interstitial lung disease. TECHNIQUE: Axial computed tomographic angiography images of the chest with intravenous contrast. CTDI is 40.61 mGy and DLP is 570.71 mGy-cm. Automated exposure control was utilized for the study. A dose lowering technique was utilized adhering to the principles of ALARA. MIP reconstructed images were created and reviewed. COMPARISON: No relevant prior studies available. FINDINGS: Pulmonary arteries: Unremarkable. No acute pulmonary embolism. Aorta: No acute findings. No thoracic aortic aneurysm. Lungs: Bilateral airspace consolidations, with peripheral cystic changes, concerning for developing fibrosis/honeycombing. Correlate for interstitial lung disease (usual interstitial fibrosis). Superimposed pneumonia cannot be excluded. Pleural space: Unremarkable. No significant effusion. No pneumothorax. Heart: Unremarkable. No cardiomegaly. No significant pericardial effusion. No evidence of RV dysfunction. Bones/joints: No acute fracture. No dislocation. Soft tissues: Unremarkable. Lymph nodes: Unremarkable. No enlarged lymph nodes. Kidneys and ureters: Nonobstructing 6 mm LEFT upper pole renal stone. IMPRESSION: 1. No acute pulmonary embolism. 2. Bilateral airspace consolidations, with peripheral cystic changes, concerning for developing fibrosis/honeycombing. Correlate for interstitial lung disease (usual interstitial fibrosis). Superimposed pneumonia cannot be excluded. 3. Nonobstructing 6 mm LEFT upper pole renal stone. Electronically signed by: Jesus Nieves MD 01/21/23 19:43 PM Chest X-Ray 01/21/23 18:17 SINGLE VIEW CHEST CLINICAL HISTORY: Dyspnea FINDINGS: An AP, portable, upright chest radiograph is obtained. No prior studies are available for comparison at the time of dictation. The examination is degraded by portable technique and patient rotation. The patient's head partially obscures the apices. Fullness of the antony may represent lymphadenopathy. The heart is top normal for projection. There is multifocal airspace consolidation throughout the right lung and at the left lung base. No large pleural effusion or pneumothorax is seen. The skeletal structures are osteopenic. The bony thorax is grossly intact. IMPRESSION: Multifocal airspace consolidation suggests pneumonia/aspiration pneumonitis. Clinical correlation will be required and radiographic follow-up to resolution is recommended. ACT 112: Negative or not required by law. Electronically signed by: Alfredo Jaimes M.D. 01/21/2023 6:44 PM ECG Additional Comments: sinus tachycardia at 127bpm, no acute ischemic changes Code Status & VTE Plan VTE Prophylaxis Plan VTE Prophylaxis will be ordered: Yes PG Care Time/CCT Total # of Minutes Spent Total Time Spent with Patient: Total time spent is greater than 50% in coordination of care (as documented) at patient's floor/unit and/or counseling patient: Coding Level of Care Code 98058 INT INP/OBS CARE 3/75MIN Diagnoses Pneumonia J18.9 Laterality: unspecified laterality Lung location: unspecified part of lung Pneumonia type: due to unspecified organism Interstitial lung disease J84.9 (1) Pneumonia Laterality: unspecified laterality Lung location: unspecified part of lung Pneumonia type: due to unspecified organism Qualified Code(s): J18.9 - Pneumonia, unspecified organism
[2023-01-21] MEDS ORDERED: ACETAMINOPHEN 325 MG TAB PO PRN (22:59)
[2023-01-21] MEDS ORDERED: SODIUM CHLORIDE 0.65% NA SOLN 45 ML (OCEAN) PRN (22:59)
[2023-01-21] MEDS ORDERED: VANCOMYCIN HCL 1,000 MG in SODIUM CHLORIDE 0.9% 250 ML IV SCH (22:59)
[2023-01-21 23:34] LABS: Magnesium 2.2 mg/dl (1.7-2.4); Phosphorus 4.1 mg/dl (2.5-4.9)
[2023-01-22] MEDS ORDERED: VANCOMYCIN HCL 1,500 MG in SODIUM CHLORIDE 0.9% 500 ML IV SCH (04:00)
[2023-01-22 04:30] LABS: Mean Corpuscular Hemoglobin 26.2 pg (25.0-34.0); Mean Corpuscular Hgb Conc 32.4 g/dL (32.0-36.0); Mean Corpuscular Volume 80.8 fL (80.0-100.0); Platelet Count 318 K/uL (130-400); RDW Coefficient of Variation 14.3 % (11.5-14.5); RDW Standard Deviation 41.6 fL (36.4-46.3); Red Blood Count 4.58 M/uL (4.20-5.40); White Blood Count 8.86 K/ul (4.8-10.8)
[2023-01-22 04:44] LABS: BUN Creatinine Ratio 25.6 (10-20); Calcium 8.7 mg/dl (8.6-10.3); Creatinine Clr Calc Pharmacy 140.8 ml/min; Est GFR (African American) 137.5 ml/min; Est GFR (Non-African American) 118.6 ml/min; Potassium 3.9 mmol/L (3.5-5.1)
[2023-01-22 04:50] LABS: Troponin I High Sensitivity 16.2 pg/ml (0-14)
[2023-01-22] MEDS: CEFEPIME 2,000 MG in SYRINGE 0 ML IV SCH ×3 (06:12→22:36)
[2023-01-22] MEDS: ENOXAPARIN INJ 40 MG/0.4 ML SYR SQ SCH (06:13)
[2023-01-22] MEDS: FAMOTIDINE 20 MG TAB PO SCH ×2 (08:10→21:08)
[2023-01-22] MEDS: PANTOprazole 40 MG TAB PO SCH (08:10)
[2023-01-22] MEDS: FUROSEMIDE 20 MG TAB PO SCH (08:11)
[2023-01-22] MEDS: SILDENAFIL CITRATE 20 MG TABLET PO SCH ×3 (08:11→21:08)
[2023-01-22] MEDS: MYCOPHENOLATE MOFETIL 250 MG CAP PO SCH ×2 (08:11→21:07)
--- NOTE | 2023-01-22 10:51 | Pharmacy Report ---
Pharmacy PK ABX Note - Date of Service January 22, 2023 - Assessment and Plan Assessment 52 year old F receiving vancomycin/cefepime for treatment of possible pneumonia. Patient has a history of advanced scleroderma on immunosuppression, interstitial lung disease following with pulm/transplant at [facility]. Pertinent microbiologic data includes: MRSA nasal swab negative, urine culture pending, mild leukocytosis has resolved. Plan Vancomycin * Received 1000 mg x 1 dose in the ED * Maintenance dose: 1000 mg IV every 8 hours * Regimen is predicted to achieve target AUC/AYLEEN of 400-600 mg/L.hr * Random level ordered for 01/23 @4519 Pharmacy will continue to follow and will adjust dose/frequency as necessary. Thank you. Pharmacy has transitioned to AUC monitoring for vancomycin. AUC/AYLEEN is the preferred PK/PD target and is associated with decreased risk of nephrotoxicity compared to traditional trough targets.
--- NOTE | 2023-01-22 12:06 | XCELERA ---
[id number] \\[id number]
--- NOTE | 2023-01-22 14:10 | Electrocardiogram Report ---
Test Reason : Blood Pressure : / mmHG Vent. Rate : 127 BPM Atrial Rate : 127 BPM P-R Int : 174 ms QRS Dur : 080 ms QT Int : 284 ms P-R-T Axes : 058 082 077 degrees QTc Int : 412 ms Sinus tachycardia Possible Left atrial enlargement Low voltage QRS Borderline ECG No previous ECGs available Confirmed by Jessee Allen ([id number]) on 01/22/2023 2:10:24 PM Referred By: REFERRED SELF Confirmed By:Nickolas Allen
[2023-01-22] MEDS: VANCOMYCIN HCL 1,000 MG in SODIUM CHLORIDE 0.9% 250 ML IV SCH ×2 (15:16→22:36)
--- NOTE | 2023-01-22 15:44 | Hospitalist Progress Note ---
Date of Service January 22, 2023 Assessment & Plan (1) Pneumonia: Plan: In immunosuppressed host. Currently on vancomycin and cefepime. Obtain sputum culture if sputum is produced. Serial chest x-ray. Patient follows at [facility]. Await sputum culture results. Dr. Treviño was contacted by ER attending. (2) Interstitial lung disease: Plan: Known interstitial lung disease with chronic respiratory failure and pulmonary hypertension. Cardiac echo reveals normal left ventricular ejection fraction with diastolic dysfunction. Moderately dilated right ventricle and right atrium with elevated right ventricular systolic pressures as expected. Continue Sildenafil, Cellcept, Ambrisentan (3) Chronic respiratory failure with hypoxia: Plan: She is requiring her baseline oxygen amount. Continue to treat underlying pneumonia. Titrate oxygen to keep saturation greater than 90% Plan Hopeful discharge back to home soon Admission and Anticipated Discharge Date Admission Date: January 21, 2023 Subjective Alert and oriented. No distress. She is on her usual amount of oxygen per nasal cannula. 95% saturation on 6 L. She remains on intravenous vancomycin and cefepime, day 2. Chest CTA negative for PE. Cardiac echo reveals normal left ventricular ejection fraction with diastolic dysfunction. Moderately dilated right ventricle and right atrium. Right ventricular systolic pressures are elevated as expected with chronic lung disease. Review of Systems 2 Review of Systems: Constitutional-no fever or chills ENT-no blurred vision, no double vision, no epistaxis, no sore throat Respiratory- occasionally productive cough. Dyspnea on exertion Cardiac-no palpitations, no chest pain, no syncope GI-no nausea, vomiting, diarrhea, melena, hematochezia -no urinary retention, no urinary incontinence, no dysuria, no hematuria Musculoskeletal-no joint pain, no muscle tenderness Skin-no bruising, no rashes, no pruritus Neuro-no isolated weakness, no paresthesia, no weakness Psych-no depression, no anxiety Physical Exam 2 Physical Exam: General-alert and oriented x3, no fevers, no chills HEENT-head atraumatic and normocephalic, pupils equal and reactive to light, extraocular muscles intact Neck-no lymphadenopathy or thyromegaly, trachea midline Chest-dry inspiratory crackles bibasilar. No wheezing. No dullness to percussion Cardiac-regular rate and rhythm, normal S1 and S2 Abdomen-normal bowel sounds, nontender, no hepatosplenomegaly Extremities-no cyanosis, clubbing, or edema Neuro-cranial nerves II through XII intact, motor and sensory function within normal limits, strength symmetrical , no focal deficits Psych-normal affect, normal mood Results & Data Results & Data Vital Signs (Past 12 Hours) Vital Signs Pulse Resp BP Pulse Ox O2 Del Method O2 Flow Rate 01/22/23 08:00 102 H 24 97/78 L 96 6 01/22/23 07:12 105 H 01/22/23 05:00 103 H 20 92/64 L 95 Nasal Cannula 6 Laboratory Results 01/22/23 04:05 01/22/23 04:05 PG Care Time/CCT Total # of Minutes Spent Total Time Spent with Patient: Total time spent is greater than 50% in coordination of care (as documented) at patient's floor/unit and/or counseling patient: Coding Level of Care Code 97127 SUB INP/OBS CARE 3/50MIN Diagnoses Pneumonia J18.9 Laterality: unspecified laterality Lung location: unspecified part of lung Pneumonia type: due to unspecified organism Interstitial lung disease J84.9 Chronic respiratory failure with hypoxia J96.11 (1) Pneumonia Laterality: unspecified laterality Lung location: unspecified part of lung P neumonia type: due to unspecified organism Qualified Code(s): J18.9 - Pneumonia, unspecified organism
[2023-01-22] MEDS ORDERED: ALBUT/IPRATROP 3MG/0.5MG NEB 3 ML VIAL NEB STA (20:34)
[2023-01-22] MEDS: traZODone HCL 50 MG TAB PO SCH (21:08)
[2023-01-23] MEDS ORDERED: VANCOMYCIN LEVEL ONE (04:44)
[2023-01-23] MEDS: VANCOMYCIN HCL 1,000 MG in SODIUM CHLORIDE 0.9% 250 ML IV SCH (06:18)
[2023-01-23] MEDS: ENOXAPARIN INJ 40 MG/0.4 ML SYR SQ SCH (06:19)
[2023-01-23] MEDS: CEFEPIME 2,000 MG in SYRINGE 0 ML IV SCH ×3 (06:19→21:54)
--- NOTE | 2023-01-23 07:23 | Pharmacy Report ---
Pharmacy PK ABX Note - Date of Service January 23, 2023 - Assessment and Plan Assessment 52 year old F receiving vancomycin/cefepime for treatment of possible pneumonia. Patient has a history of advanced scleroderma on immunosuppression, interstitial lung disease following with pulm/transplant at [facility]. Pertinent microbiologic data includes: MRSA nasal swab negative, urine culture and sputum culture negative, mild leukocytosis has resolved. Plan Vancomycin * Maintenance dose: 1000 mg IV every 8 hours * Random level this morning at 16.2 indicates regimen is predicted to achieve target AUC/AYLEEN of 400-600 mg/L.hr * Reorder level based upon clinical picture Pharmacy will continue to follow and will adjust dose/frequency as necessary. Thank you. Pharmacy has transitioned to AUC monitoring for vancomycin. AUC/AYLENE is the preferred PK/PD target and is associated with decreased risk of nephrotoxicity compared to traditional trough targets.
[2023-01-23] MEDS: FAMOTIDINE 20 MG TAB PO SCH ×2 (08:17→21:53)
[2023-01-23] MEDS: MYCOPHENOLATE MOFETIL 250 MG CAP PO SCH ×2 (08:17→21:54)
[2023-01-23] MEDS: FUROSEMIDE 20 MG TAB PO SCH (08:17)
[2023-01-23] MEDS: PANTOprazole 40 MG TAB PO SCH (08:18)
[2023-01-23] MEDS: SILDENAFIL CITRATE 20 MG TABLET PO SCH ×3 (08:18→21:54)
--- NOTE | 2023-01-23 13:33 | Discharge Summary ---
Date of Service January 23, 2023 Admission HPI Per Admitting Provider Yarely Stephens is a pleasant 52yo female presenting with shortness of breath. Patient has history of advanced scleroderma on immunosuppression therapy with CellCept, interstitial lung disease with chronic hypoxic respiratory failure on home O2 (5.5L at rest and 7L with ambulation). She had Covid-19 infection in November which was mild - no steroids, Remdesivir or anti-viral therapy needed. She reports that her breathing has never returned to baseline after having Covid. She has had progressive SOB and dyspnea with minimal exertion which has become much worse over the last two weeks. She has increased her supplemental O2 to 6L at rest and 8L with ambulation. She denies fever but has fatigue, poor appetite and decreased oral intake as well as chest tightness and cough - usually dry but occasionally productive for clear or brown sputum. She additionally reports worsening bilateral LE edema which does not improve with elevation and orthopnea. Patient follows with Pulmonary Clinic/Transplant services at [facility] - Dr. Treviño. She has been listed for transplant but is currently on hold. Dr. Treviño was contacted by the ER provider and provided instructions as below. She follows with Rheumatology and Dermatology for her Scleroderma. In the ER patient afebrile, tachycardic, hypoxic on arrival at 89% on 8L NC. Presently she is improved - 97% on 6L ER Course: Cefepime and Vancomycin ordered - not yet administered Principal Diagnosis Pneumonia in an immunocompromised host, acute on chronic respiratory failure Discharge Exam General-alert and oriented x3, no fevers, no chills HEENT-head atraumatic and normocephalic, pupils equal and reactive to light, extraocular muscles intact Neck-no lymphadenopathy or thyromegaly, trachea midline Chest-dry inspiratory crackles bibasilar. No wheezing. No dullness to percussion . Tachypnea at rest Cardiac-regular rate and rhythm, normal S1 and S2 Abdomen-normal bowel sounds, nontender, no hepatosplenomegaly Extremities-no cyanosis, clubbing, or edema Neuro-cranial nerves II through XII intact, motor and sensory function within normal limits, strength symmetrical , no focal deficits Psych-normal affect, normal mood Discharge Data Allergies Allergy/AdvReac Type Severity Reaction Status Date / Time povidone-iodine Allergy SWELLING Verified 01/21/23 17:41 [From Betadine] soap [From Betadine] Allergy SWELLING Verified 01/21/23 17:41 Consultations 01/21/23 20:51 ED Decision to Admit Stat Ordered Studies 01/21/23 17:16 CT angio chest PE protocol Stat Hospital Course (1) Pneumonia: In immunosuppressed host. Currently on vancomycin and cefepime. She appears to be worsening. Oxygen requirements have increased. Repeat portable chest x-ray is pending. She will be transferred to the [facility] under the care of Dr. Shawn Treviño who she sees for management of her chronic condition. (2) Interstitial lung disease: Known interstitial lung disease with chronic respiratory failure and pulmonary hypertension. Cardiac echo reveals normal left ventricular ejection fraction with diastolic dysfunction. Moderately dilated right ventricle and right atrium with elevated right ventricular systolic pressures as expected. Continue Sildenafil, Cellcept, Ambrisentan (3) Chronic respiratory failure with hypoxia: Now acute on chronic with increasing oxygen requirements. Repeat chest x-ray is pending. Continue to treat underlying pneumonia. Titrate oxygen to keep saturation greater than 90% Plan Transfer to [facility] today, January 23 Total Time Total Time Spent Total Time Spent (In Minutes): 45 minutes Discharge Plan Discharge Items Patient Disposition: Transfer Acute Care Hospital Reason For Visit: SHORTNESS OF BREATH Discharge Diagnosis: Community-acquired pneumonia in immunocompromised host, acute on chronic respiratory failure Activity: As commented below Activity Comment: Bedrest for now Non-emergency contact: Primary Care Provider and Nozzle Operator Call non-emergency contact if: your symptoms worsen Follow-up/Referrals: Peter Larsen DO [Primary Care Provider] - Diet: Regular Addtl Attending Provider Instructions: See primary care provider as soon as possible after discharge from [facility] Pending Studies at Discharge: No Stand-Alone Forms: My [facility] Skilled Items Patient informed of condition?: Yes DNR: No Discharge Level of Care: Other Communicable Disease: Yes Discharge Prognosis: Deteriorating Lines: Peripheral IV Urinary Catheter: No Medications and DC Order Prescriptions: New enoxaparin [Lovenox] 40 mg/0.4 mL Syringe 40 mg subcut Q24H Qty: 0 0RF acetaminophen 325 mg Tablet 650 mg PO Q4H PRN (Reason: fever or pain) Qty: 0 0RF pantoprazole 40 mg Tablet,Delayed Release (Dr/Ec) 40 mg PO DAILY Qty: 0 0RF Continued omeprazole 20 mg tablet,delayed release (DR/EC) 20 mg PO BID famotidine 20 mg tablet 20 mg PO BID Qty: 60 2RF (DME) Portable Oxygen Misc See Rx Instructions .Route Rx Instructions: continous-scleraderma 3lpm mycophenolate mofetil 500 mg tablet 1,500 mg PO BID ambrisentan 10 mg tablet 10 mg PO QAM sildenafil (pulm.hypertension) 20 mg tablet 20 mg PO TID Rx Instructions: administer doses at least 4-6 hours apart furosemide 20 mg tablet 20 mg PO DAILY Qty: 30 2RF metronidazole 0.75 % cream 1 applic TOPICAL BID trazodone 50 mg Tablet 50 mg PO HS Discharge Orders: Discharge Order (Routine); Ordered 01/23/23 Ordered By: Jonh Cardoza Admission Data Admit Date/Time: 01/21/23 21:24 Attending Provider: Jonh Cardoza Admit Provider: Elissa Chapman Primary Care Provider: Peter Larsen Other Providers: Elissa Chapman Coding Level of Care Code 96814 INP/OBS DISCH >30 MIN Diagnoses Pneumonia J18.9 Laterality: unspecified laterality Lung location: unspecified part of lung Pneumonia type: due to unspecified organism Interstitial lung disease J84.9 Chronic respiratory failure with hypoxia J96.11
--- NOTE | 2023-01-23 14:22 | XRay Report ---
XR chest 1V portable HISTORY: 52 years-old Female respiratory failure , pneumonia, ILD acute shortness of breath COMPARISON: 01/21/2023 TECHNIQUE: AP view of the FINDINGS: Cardiac mediastinal and hilar silhouettes are unchanged. Multifocal airspace opacities are again note d, most pronounced throughout the right lung which appear stable from prior. No pneumothorax, pleural effusion or overt pulmonary edema. Pulmonary emphysema versus cystic lung disease again noted. Degen erative changes of the shoulders and spine. IMPRESSION: Chronic interstitial lung disease with right greater than left airspace opacities again n oted which may also be related to the chronic lung disease versus superimposed pneumonitis. ACT 112: Negative or not required by law. The above report was generated using voice recognition software. It may contain grammatical, syntax o r spelling errors. Electronically signed by: Shawn Avalos M.D. 01/23/2023 2:21 PM
[2023-01-23] MEDS: traZODone HCL 50 MG TAB PO SCH (21:54)
[2023-01-24] MEDS: ENOXAPARIN INJ 40 MG/0.4 ML SYR SQ SCH (06:25)
[2023-01-24] MEDS: CEFEPIME 2,000 MG in SYRINGE 0 ML IV SCH ×3 (06:25→21:58)
[2023-01-24 07:43] LABS: Creatinine Clr Calc Pharmacy 151.4 ml/min; Est GFR (African American) 140.8 ml/min; Est GFR (Non-African American) 121.4 ml/min
[2023-01-24] MEDS: SILDENAFIL CITRATE 20 MG TABLET PO SCH ×3 (09:01→20:13)
[2023-01-24] MEDS: MYCOPHENOLATE MOFETIL 250 MG CAP PO SCH ×2 (09:02→20:12)
[2023-01-24] MEDS: FAMOTIDINE 20 MG TAB PO SCH ×2 (09:04→20:13)
[2023-01-24] MEDS: PANTOprazole 40 MG TAB PO SCH (09:04)
[2023-01-24 10:32] LABS: Basophils # (auto) 0.06 K/uL (0.00-0.20); Basophils % (auto) 0.7 %; Eosinophils # (auto) 0.58 K/uL (0.00-0.50); Eosinophils % (auto) 6.9 %; Hematocrit (blood only) 38.2 % (37.0-47.0); Hemoglobin 12.4 g/dl (12.0-16.0); Immature Granulocytes # (auto) 0.01 K/uL (0.01-0.20); Immature Granulocytes % (auto) 0.1 %; Lymphocytes # (auto) 1.99 K/uL (1.20-3.40); Lymphocytes % (auto) 23.7 %; Mean Corpuscular Hemoglobin 26.4 pg (25.0-34.0); Mean Corpuscular Hgb Conc 32.5 g/dL (32.0-36.0); Mean Corpuscular Volume 81.3 fL (80.0-100.0); Mean Platelet Volume 11.4 fL (9.4-12.4); Monocytes # (auto) 0.59 K/uL (0.11-0.59); Neutrophils # (auto) 5.15 K/uL (1.40-6.50); Neutrophils % (auto) 61.6 %; Platelet Count 307 K/uL (130-400); RDW Coefficient of Variation 14.5 % (11.5-14.5); RDW Standard Deviation 42.4 fL (36.4-46.3); White Blood Count 8.38 K/ul (4.8-10.8)
[2023-01-24 10:40] LABS: BUN Creatinine Ratio 32.5 (10-20); Calcium 9.1 mg/dl (8.6-10.3); Potassium 3.9 mmol/L (3.5-5.1)
[2023-01-24] MEDS: FUROSEMIDE 20 MG TAB PO SCH (14:15)
--- NOTE | 2023-01-24 14:18 | Hospitalist Progress Note ---
Date of Service January 24, 2023 Assessment & Plan (1) Pneumonia: Plan: In immunosuppressed host. Currently cefepime. MRSA nasal swab is negative and vancomycin has been discontinued. Chest x-ray stable. Oxygen requirements are stable. Sputum culture is nondiagnostic (2) Interstitial lung disease: Plan: Known interstitial lung disease with chronic respiratory failure and pulmonary hypertension. Cardiac echo reveals normal left ventricular ejection fraction with diastolic dysfunction. Moderately dilated right ventricle and right atrium with elevated right ventricular systolic pressures as expected. Continue Sildenafil, Cellcept, Ambrisentan (3) Chronic respiratory failure with hypoxia: Plan: She is using her baseline oxygen requirements. Repeat chest x-ray shows no significant change. Continue to treat suspected underlying pneumonia. Titrate oxygen to keep saturation greater than 90% Plan Hopefully she can go home tomorrow, January 25, on an oral antibiotic if she remains stable Admission and Anticipated Discharge Date Admission Date: January 21, 2023 Subjective Alert and oriented. No distress. Stable from a cardiopulmonary standpoint. Sputum culture is nondiagnostic. She remains on oxygen at her baseline requirements. MRSA nasal swab is negative. Vancomycin has been discontinued. Will repeat chest x-ray again tomorrow, January 25. 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 Dyspnea on exertion Cardiac-no palpitations, no chest pain, no syncope GI-no nausea, vomiting, diarrhea, melena, hematochezia -no urinary retention, no urinary incontinence, no dysuria, no hematuria Musculoskeletal-no joint pain, no muscle tenderness Skin-no bruising, no rashes, no pruritus Neuro-no isolated weakness, no paresthesia, no weakness Psych-no depression, no anxiety Physical Exam 2 Physical Exam: General-alert and oriented x3, no fevers, no chills HEENT-head atraumatic and normocephalic, pupils equal and reactive to light, extraocular muscles intact Neck-no lymphadenopathy or thyromegaly, trachea midline Chest-dry inspiratory crackles bibasilar. No wheezing. No dullness to percussion . Tachypnea at rest Cardiac-regular rate and rhythm, normal S1 and S2 Abdomen-normal bowel sounds, nontender, no hepatosplenomegaly Extremities-no cyanosis, clubbing, or edema Neuro-cranial nerves II through XII intact, motor and sensory function within normal limits, strength symmetrical , no focal deficits Psych-normal affect, normal mood Results & Data Results & Data Vital Signs (Past 12 Hours) Vital Signs Temp Pulse Resp BP Pulse Ox O2 Del Method O2 Flow Rate 01/24/23 11:19 36.6 C 72 19 92/60 L 93 Nasal Cannula 7.0 01/24/23 07:37 36.4 C L 73 19 90/58 L 94 Nasal Cannula 7.0 01/24/23 03:31 36.6 C 103 H 19 84/55 L 94 Nasal Cannula 7 Laboratory Results 01/24/23 09:55 01/24/23 06:11 PG Care Time/CCT Total # of Minutes Spent Total Time Spent with Patient: Total time spent is greater than 50% in coordination of care (as documented) at patient's floor/unit and/or counseling patient: Coding Level of Care Code 72762 SUB INP/OBS CARE 3/50MIN Diagnoses Pneumonia J18.9 Laterality: unspecified laterality Lung location: unspecified part of lung Pneumonia type: due to unspecified organism Interstitial lung disease J84.9 Chronic respiratory failure with hypoxia J96.11 (1) Pneumonia Laterality: unspecified laterality Lung location: unspecified part of lung P neumonia type: due to unspecified organism Qualified Code(s): J18.9 - Pneumonia, unspecified organism
[2023-01-24] MEDS: traZODone HCL 50 MG TAB PO SCH (20:16)
[2023-01-25] MEDS: ENOXAPARIN INJ 40 MG/0.4 ML SYR SQ SCH (05:41)
[2023-01-25] MEDS: CEFEPIME 2,000 MG in SYRINGE 0 ML IV SCH (05:41)
--- NOTE | 2023-01-25 07:56 | XRay Report ---
XR chest 1V portable CLINICAL HISTORY: ILD, pneumonia COMPARISON STUDY: Chest CT January 21, 2023. Chest radiograph January 23, 2023. FINDINGS: No pneumothorax or pleural effusion is present. Interstitial thickening is again noted. Sup erimposed bilateral airspace opacities, greater within the right lung, have minimally progressed. Car diomediastinal silhouette is stable. IMPRESSION: Slight progression of multifocal airspace opacities, greater within the right lung. The findings favo r pneumonia superimposed upon pulmonary fibrosis. Radiographic follow-up to ensure resolution of thes e airspace opacities is recommended. ACT 112: Negative or not required by law. Electronically signed by: Trino Chow M.D. 01/25/2023 7:55 AM
[2023-01-25] MEDS: PANTOprazole 40 MG TAB PO SCH (08:28)
[2023-01-25] MEDS: SILDENAFIL CITRATE 20 MG TABLET PO SCH (08:29)
[2023-01-25] MEDS: MYCOPHENOLATE MOFETIL 250 MG CAP PO SCH (08:30)
[2023-01-25] MEDS: FAMOTIDINE 20 MG TAB PO SCH (08:32)
--- NOTE | 2023-01-25 12:12 | Discharge Summary ---
Date of Service January 25, 2023 Admission HPI Per Admitting Provider Yarely Stephens is a pleasant 52yo female presenting with shortness of breath. Patient has history of advanced scleroderma on immunosuppression therapy with CellCept, interstitial lung disease with chronic hypoxic respiratory failure on home O2 (5.5L at rest and 7L with ambulation). She had Covid-19 infection in November which was mild - no steroids, Remdesivir or anti-viral therapy needed. She reports that her breathing has never returned to baseline after having Covid. She has had progressive SOB and dyspnea with minimal exertion which has become much worse over the last two weeks. She has increased her supplemental O2 to 6L at rest and 8L with ambulation. She denies fever but has fatigue, poor appetite and decreased oral intake as well as chest tightness and cough - usually dry but occasionally productive for clear or brown sputum. She additionally reports worsening bilateral LE edema which does not improve with elevation and orthopnea. Patient follows with Pulmonary Clinic/Transplant services at [facility] - Dr. Treviño. She has been listed for transplant but is currently on hold. Dr. Treviño was contacted by the ER provider and provided instructions as below. She follows with Rheumatology and Dermatology for her Scleroderma. In the ER patient afebrile, tachycardic, hypoxic on arrival at 89% on 8L NC. Presently she is improved - 97% on 6L ER Course: Cefepime and Vancomycin ordered - not yet administered Principal Diagnosis Suspected pneumonia of undetermined etiology, acute on chronic respiratory desmond lure, immunocompromised host, chronic interstitial lung disease, Discharge Exam General-alert and oriented x3, no fevers, no chills HEENT-head atraumatic and normocephalic, pupils equal and reactive to light, extraocular muscles intact Neck-no lymphadenopathy or thyromegaly, trachea midline Chest-dry inspiratory crackles bibasilar. No wheezing. No dullness to percussion . Tachypnea at rest Cardiac-regular rate and rhythm, normal S1 and S2 Abdomen-normal bowel sounds, nontender, no hepatosplenomegaly Extremities-no cyanosis, clubbing, or edema Neuro-cranial nerves II through XII intact, motor and sensory function within normal limits, strength symmetrical , no focal deficits Psych-normal affect, normal mood Discharge Data Allergies Allergy/AdvReac Type Severity Reaction Status Date / Time povidone-iodine Allergy SWELLING Verified 01/21/23 17:41 [From Betadine] soap [From Betadine] Allergy SWELLING Verified 01/21/23 17:41 Consultations 01/21/23 20:51 ED Decision to Admit Stat 01/23/23 13:52 Burn CD for patient Stat Ordered Studies 01/21/23 17:16 CT angio chest PE protocol Stat Hospital Course (1) Pneumonia: In immunosuppressed host. Treated while hospitalized with cefepime. She will be discharged on oral doxycycline. Sputum culture is nondiagnostic. This could be of viral etiology. MRSA nasal swab is negative and vancomycin has been discontinued. Chest x-ray stable. Oxygen requirements are stable. (2) Interstitial lung disease: Known interstitial lung disease with chronic respiratory failure and pulmonary hypertension. Cardiac echo reveals normal left ventricular ejection fraction with diastolic dysfunction. Moderately dilated right ventricle and right atrium with elevated right ventricular systolic pressures as expected. Continue Sildenafil, Cellcept, Ambrisentan (3) Chronic respiratory failure with hypoxia: She is using her baseline oxygen requirements. Repeat chest x-ray shows no significant change. Continue to treat suspected underlying pneumonia. Titrate oxygen to keep saturation greater than 90% Plan Home today, January 25, on oral doxycycline. She will check her weight daily and if her weight goes up by 2 pounds then she will take her diuretic. Her diuretic will be taken as needed only, not daily Total Time Total Time Spent Total Time Spent (In Minutes): 40 minutes Discharge Plan Discharge Items Patient Disposition: Home - Self-Care Reason For Visit: SHORTNESS OF BREATH Discharge Diagnosis: Community-acquired pneumonia in immunocompromised host, acute on chronic respiratory failure Activity: Resume your previous activity Non-emergency contact: Primary Care Provider and Pool Technician Call non-emergency contact if: your symptoms worsen Follow-up/Referrals: Peter Larsen DO [Primary Care Provider] - Diet: Regular Addtl Attending Provider Instructions: Take doxycycline for 1 week as directed. Check weight daily and if weight increases by 2 pounds, then take the water pill. Do not take the water pill daily Pending Studies at Discharge: No Stand-Alone Forms: My Dick or Bro, Smoking Cessation Medications and DC Order Prescriptions: New doxycycline hyclate 100 mg capsule 100 mg PO BID 7 Days Qty: 14 0RF pantoprazole 40 mg Tablet,Delayed Release (Dr/Ec) 40 mg PO DAILY Qty: 0 0RF Continued omeprazole 20 mg tablet,delayed release (DR/EC) 20 mg PO BID famotidine 20 mg tablet 20 mg PO BID Qty: 60 2RF (DME) Portable Oxygen Misc See Rx Instructions .Route Rx Instructions: continous-scleraderma 3lpm mycophenolate mofetil 500 mg tablet 1,500 mg PO BID ambrisentan 10 mg tablet 10 mg PO QAM sildenafil (pulm.hypertension) 20 mg tablet 20 mg PO TID Rx Instructions: administer doses at least 4-6 hours apart metronidazole 0.75 % cream 1 applic TOPICAL BID trazodone 50 mg Tablet 50 mg PO HS Changed furosemide 20 mg tablet 20 mg PO DAILY PRN (Reason: Edema) Qty: 30 2RF Discharge Orders: Discharge Order (Routine); Ordered 01/25/23 Ordered By: Jonh Cardoza Admission Data Admit Date/Time: 01/21/23 21:24 Attending Provider: Jonh Cardoza Admit Provider: Elissa Chapman Primary Care Provider: Peter Larsen Other Providers: Elissa Chapman Coding Level of Care Code 71698 INP/OBS DISCH >30 MIN Diagnoses Pneumonia J18.9 Laterality: unspecified laterality Lung location: unspecified part of lung Pneumonia type: due to unspecified organism Interstitial lung disease J84.9 Chronic respiratory failure with hypoxia J96.11
== END 2023-01-25 15:53 | disposition home or self-care (01) | DRG 193 ==
LOC: ED 16:57 → SUATTDRO 21:24 → EDINP 21:24 → 2N 01-22 18:00 → 2S 01-22 21:24

== ENCOUNTER 2024-03-26 09:25 | Inpatient (IN) ==
--- OUTSIDE RECORDS SUMMARY | 2024-03-26 09:31 | External Medical Summary | Summary of Care ---
Author Name Unknown Organization [facility] Address [address] [place] [address] Phone [phone] Care Team Providers Care Leadership Coach Name Role Phone Peter Larsen DO Primary Care Provider Reason for Visit * Reason Comments IV Therapy Solumedrol Encounter Details Date Type Department Care Team (Latest Contact Info) Description 01/26/2024 2:15 PM EST Hem/Onc Treatment Hematology/Oncology Treatment, [address] [phone] Mena, Chair 4 Hem Onc [facility] [address] [place] [address] Lung transplant status, bilateral (HCC)* Allergies Active Allergy Reactions Criticality Noted Date Comments Nsaids 02/02/2023 Lung transplant increases risk of renal toxicity, call lung txp provider to discuss if needed Povidone Iodine 01/04/2020 Rash Soap 12/04/2021 Other reaction(s): SWELLING Succinylcholine Muscle pain Low 05/01/2023 Other Reaction(s): Muscle Cramps documented as of this encounter (statuses as of 03/05/2024) Medications Ventolin HFA 108 (90 Base) MCG/ACT Inhalation Aerosol Solution Inhale 2 Puffs by mouth every 4 hours as needed for Cough, Shortness of Breath or Wheezing. 18 g 3 021 Active Cholecalciferol 25 MCG (1000 UT) Oral Tablet Take 3 Tablets by mouth in the morning. Active Famotidine 20 MG Oral Tablet (Pepcid) Take 1 Tablet by mouth in the morning and 1 Tablet before bedtime. Active One-Daily Multi Vitamins Oral Tablet Take 1 Tablet by mouth in the morning. Active Mycophenolate Mofetil 500 MG Oral Tablet (Cellcept)Indicat ions:Limited systemic sclerosis (HCC),ILD (interstitial lung disease) (HCC) TAKE 3 TABLETS BY MOUTH 2 TIMES A DAY. 540 Tablet 1 Active traZODone HCl 50 MG Oral Tablet (Desyrel)Indicati ons:Insomnia, unspecified type Take 1 Tablet by mouth at bedtime. 90 Tablet Active Acetaminophen 325 MG Oral Tablet (Tylenol) Crush 1-2 tabs, mix with water and give down J tube every 6 hours as needed for mild pain Active Acyclovir 200 MG/5ML Oral Suspension (Zovirax) TAKE 10 ML BY MOUTH EVERY 12 HOURS Active Citalopram Hydrobromide 10 MG/5ML Oral Solution (Celexa) 5 mL in the morning. Active Lansoprazole 15 MG Oral Tablet Delayed Release Disintegrating (Prevacid Solutab) Give twice daily by placing 15 mg tablet in oral syringe, draw up 10 mL water, after tablet has dispersed, administer within 15 minutes Active Letermovir 480 MG Oral Tablet (Prevymis) Take 480 mg by mouth in the morning. Active Ondansetron HCl 4 MG Oral Tablet (Zofran) 1 Tablet. Active predniSONE 10 MG Oral Tablet (Deltasone) Active Simethicone 40 MG/0.6ML Oral Liquid 0.6 mL in the morning and 0.6 mL before bedtime. Active Sodium Chloride 3 % Inhalation Nebulization Solution Inhale 4 mL by mouth in the morning and 4 mL before bedtime. Active Tacrolimus 1 MG Oral Capsule (Prograf) Place 1 Capsule under the tongue in the morning. Active Tacrolimus 0.5 MG Oral Capsule (Prograf) Place 1 Capsule under the tongue in the morning. Active Sterile Water for Irrigation Irrigation Solution 60 mL 6 times a day. Active metroNIDAZOLE 0.75 % External Cream (MetroCream) Apply topically to affected area 2 times a day. Apply to face 45 g 5 Active Nivestym 300 MCG/0.5ML Injection Solution Prefilled Syringe (Filgrastim-aafi) Inject 300 mcg under the skin in the morning. 024 2023 Discontinued levoFLOXacin 750 MG Oral Tablet (Levaquin) 024 2023 Discontinued Metoclopramide HCl 5 MG/5ML Oral Solution (Reglan) 5 mL in the morning and 5 mL before bedtime. 024 2023 Discontinued Pantoprazole Sodium 40 MG Oral Tablet Delayed Release (Protonix) 1 Tablet. 2023 Discontinued Posaconazole 100 MG Oral Tablet Delayed Release (Noxafil) Crush 3 tablets, mix with water and give down J tube daily 2023 Discontinued Sulfamethoxazole- Trimethoprim 200-40 MG/5ML Oral Suspension (Bactrim) 20 mL. 024 2023 Discontinued Zoledronic Acid 5 MG/100ML Intravenous Solution (Reclast)Indicati ons:Lung transplant status, bilateral (HCC),Steroid-ind uced osteoporosis Administer 5 mg at 400 mL/hr over 15 minutes intravenously once for 1 dose. 100 mL 2023 documented as of this encounter (statuses as of 03/05/2024) Active Problems Problem Noted Date Diagnosed Date Lung transplant status, bilateral 10/16/2023 Steroid-induced osteoporosis 10/16/2023 Osteopenia of multiple sites 07/08/2022 Esophageal dysmotility 02/28/2022 Pulmonary hypertension 02/28/2022 Chronic right-sided heart failure 07/18/2021 Nocturnal hypoxemia 04/17/2021 Idiopathic PAH (pulmonary arterial hypertension) 02/26/2021 Diffuse cutaneous systemic sclerosis 11/05/2020 Gastroesophageal reflux disease without esophagi tis 10/24/2020 Raynaud's disease without gangrene 01/04/2020 Chronic respiratory failure with hypoxia ILD (interstitial lung disease) 09/23/2019 Encounter for long-term (cur rent) use of high-risk medication 09/23/2019 documented as of this encounter (statuses as of 03/05/2024) Resolved Problems Problem Noted Date Diagnosed Date Resolved Date Encounter for long-term (cur rent) use of high-risk medication 01/04/2020 10/24/2020 Interstitial lung disease 01/04/2020 Limited systemic sclerosis 01/04/2020 0 10/24/2020 Chronic respiratory failure with hypoxia 01/04/2020 10/24/2020 Limited systemic sclerosis 09/23/2019 0 11/05/2020 documented as of this encounter (statuses as of 03/05/2024) Immunizations Name Administration Dates Next Due COVID-19 mRNA, LNP-s, No Pre serve, 2-Dose Series ([employer]) 12/11/2020,04/19/2020,03/29/2020 COVID-19, LNP-s, No Preserve , Freddie-sucrose, Ages 12+ ([employer]) 08/21/2021 Covid-19, Mrna, Lnp-s, Pf, B ivalent, 30 Mcg, IM, 12 yrs and above ([employer]) 12/16/2021 HEP A - Hepatitis A (Adult > 18 yrs) 07/03/2022, 12/30/2021 HepA Inact/HepB Recomb>=18yrs old 07/03/2022 Hepatitis B, 20+ yrs 07/03/2022,01/29/2022,12/30 Hepatitis B, Unspecified Formulation 01/29/2022, 12/30/2021 PPD 12/11/2014 Pneumococcal Conjugate Vacci ne, 20-valent ([id number]) 12/16/2021 Pneumococcal Polysaccharide PPV23 (Pneumovax) 09/20/2019 Seasonal Influenza Vac., MDV , IM, 0.5 mL (Fluzone) 12/12/2016,12/02/2015,10/29/2012 Seasonal Influenza Virus Vac cine, Unspecified Formulation 12/11/2018,11/03/2017,12/12/2016 Seasonal Influenza, PF, 6 M & above, IM , (FluLaval or Fluzone) 11/29/2022,11/08/2021,01/11/2021 Seasonal Influenza, Quadriva lent, No Preserve, IM 10/18/2019,12/11/2018 TDAP, Age 7 and older, IM (Adacel) 11/03/2017 Zoster Vaccine Recombinant (Shingrix) 02/22/2022 ,12/23/2021 documented as of this encounter Social History Tobacco Use Types Packs/Day Years Used Date Smoking Tobacco: Former Cigarettes 1 20 0 02/23/1987 - 02/23/2007 Smokeless Tobacco: Never Alcohol Use Standard Drinks/Week Comments Never 0 (1 standard drink = 0.6 oz pur e alcohol) AUDIT-C Answer Date Recorded Frequency of Alcohol Consumption Never 08/23/2019 Average Number of Drinks Not on file 020 Frequency of Binge Drinking Not on file 07/26 Hunger Vital Sign Answer Date Recorded Within the past 12 months, y ou worried that your food would run out before you got the money to buy more. Patient declined Within the past 12 months, t he food you bought just didn't last and you didn't have money to get more. Patient declined 06/2023 Childcare Answer Date Recorded Do you feel overwhelmed with taking care of a child, family member or friend? No 09/28/2023 Does your family need help f inding childcare? (Household - for ages 0-17 years) Not on file 09/28/2023 Clothing Answer Date Recorded Have you been unable to get clothing when it was really needed? No 09/28/2023 Is your family able to get c lothes or diapers when needed? (Household - for ages 0-17 years) Not on file 09/28/2023 Personal Safety Answer Date Recorded Do you feel unsafe or have concerns for your saf ety? No 09/28/2023 Do you have concerns for you r family's safety? (Household - for ages 0-17 years) Not on file 09/28/2023 Utilities Answer Date Recorded Do you have trouble paying y our heating, water, or electric bill? No 09/28/2023 Is your family able to pay t he heat, water, or electric bill? (Household - for ages 0-17 years) Not on file 09/28/2023 Does your family have access to good internet? (Household - for ages 0-17 years) Not on file 09/28/2023 Employment Status Answer Date Recorded Are you unemployed or without regular income? No 09/28/2023 Does the household have a re gular source of income? (Household - for ages 0-17 years) Not on file 09/28/2023 Social Connections Answer Date Recorded How often do you feel lonely or isolated from th ose around you? Never 09/28/2023 Financial Resource Strain Answer Date R ecorded Do you have any trouble payi ng for your medications, or do you think you might in the future? No 09/28/2023 Does your family have troubl e paying for medicine? (Household - for ages 0-17 years) Not on file 09/28/2023 Transportation Needs Answer Date Record ed Do you have trouble getting a ride to medical visits or work? (Adult - for ages 18 years and over) Not on file 09/28/2023 Does your family have a hard time getting a ride to doctors visits? (Household - for ages 0-17 years) Not on file 09/28/2023 Has lack of transportation k ept you from medical appointments, meetings, work, or from getting things needed for daily living? Check all that apply. No 09/28/2023 Do you (or your family) have trouble finding or paying for a ride (transportation)? (Household - for ages 0-17 years) Not on file 09/28/2023 Housing Stability Answer Date Recorded Do you currently live in a s helter or have no steady place to sleep at night? No 09/28/2023 Do you think you are at risk of becoming homeless? (Adult - for ages 18 years and over) Not on file 09/28/2023 Does your family worry about paying for your home or becoming homeless? (Household - for ages 0-17 years) Not on file 0 09/28/2023 Are you homeless or worried that you might be in the future? No 09/28/2023 Are you (or your family) gregoria eless or worried that you might be in the future? (Household - for ages 0-17 years) Not on file Food Insecurity Answer Date Recorded Do you need food for this week? No 09/28/2023 Are you able to get enough f ood for your family? (Household - for ages 0-17 years) Not on file 09/28/2023 Does your family need food t his week? (Household - for ages 0-17 years) Not on file 09/28/2023 Do you always have enough fo od for your family? 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 PIV flushed with brisk blood return with NSS 10 ml. Netting applied over sight and patient informed to keep pets away from IV site. Goals: Patient will remain free from injury. Possible barriers to meeting goals: Ambulating with IV pole Stability of the patient: Moderately stable - low risk of patient condition declining or worsening Summary regarding today's goals: Met: Patient remains free from harm. Pt discharged in stable condition. * Caro Verma RN - 01/26/2024 4:36 PM EST Chair 12 Patient here for treatment. PIV started with brisk blood return. Patient instructed on use of heat in chair. Patient shown how to operate the heat function of the chair and to alert nursing staff if the chair feels too warm. Patient instructed on the risk of potential alm while using the heat function. Safety and Risk for Injury Patient will remain free from injury. Ensure appropriate safety devices are available. Provide and maintain safe environment. documented in this encounter Plan of Treatment Upcoming Encounters Date Type Department Care Team (Late st Contact Info) Description 10/04/2024 11:20 AM EDT Office Visit Rheumatology [facility] [address] [phone] Isrrael New MD [address] [facility] [address] [place] [address] 10/18/2024 9:00 AM EDT Office Visit Dermatology, [facility] [address] [address] Juliet Chávez [facility] [address] [address] 11/03/2024 9:40 AM EDT Office Visit Pulmonary Medicine, [facility] [address] [address] [place] Bower MD [address] [address] Scheduled Procedures Name Priority Associated Diagnoses Date/Ti me COLONOSCOPY FLEXIBLE PROXIMA L DIAGNOSTIC Recall Screening for colon cancer Health Maintenance Due Date Last Done Comments Depression Screening 1984 Hepatitis C Screening 1990 Pap Smear 1993 Cervical Cancer Screening 2002 HPV/Co-Test 2002 Cologuard 2017 Fecal Occult Blood Test 2017 Sigmoidoscopy 2017 Mammogram 10/30/2017 10/30/2016, 08/2016, 08/21/2014, Additional history exists DXA Scan 10/02/2023 10/01/2021 Lipid Panel 10/08/2026 10/08/2021, 04/24, 08/05/2019 DTap/Tdap Vaccines (2 - Td or Tdap) 11/04/2027 11/03/2017 Colonoscopy 12/04/2028 12/04/2021 Colorectal Cancer Screening 12/04/2028 Pneumococcal Vaccine: 50+ Years Completed 12/16/2021, 09/20/2019 Zoster Vaccines Completed 02/22/2022, 12/23/2021 Hepatitis B Vaccine Completed 07/03/2022, 07/03/2022, 01/29/2022, Additional history exists HIV Screening Completed 03/05/2023 VITAMIN D LEVEL ONCE IN A LIFETIME-USE SMARTSET# [id number] Completed 10/28/2023, 07/13/2023, 07/13/2023, Additional history exists Influenza Vaccine (FLU shot) Completed , 11/29/2022, 11/08/2021, Additional history exists COVID-19 Vaccine Completed 01/19/2024, , 08/21/2021, Additional history exists HPV (Gardasil) Vaccine Aged Out No lo nger eligible based on patient's age to complete this topic MENINGOCOCCAL (MENACTRA/MENVEO) Aged Out No longer eligible based on patient's age to complete this topic documented as of this encounter Medical Devices Implanted Type Area Car [employer]ental Agency Manager Device Identifier Shelf Expiration Date Model / Serial / Lot Cath Thermodilution 6fr - [id number] Implanted:Qty: 1 on 01/16/2021 by Marquise Alexander MD [facility] [place] [employer] [id number] 12/07/2022 [id number] / / [id number] documented as of this encounter Visit Diagnoses Diagnosis Lung transplant status, bilateral (HCC)- Primary Lung replaced by transplant documented in this encounter Administered Medications Inactive Administered Medications - up to 3 most recent administrations Medication Order MAR Action Action Date Dose Rate Site methylPREDNISolone sodium succ (SOLU-Medrol) 750 mg in NSS 100 mL ivpb 750 mg, IV Piggyback, ONCE, 1 dose, On Thu01/26/24 at 1445, Administer over 30 MinutesIndications:Lung transplant status, bilateral (HCC) Start Infusion 01/26/2024 2:22 PM EST 750 mg 234 mL/hr NSS infusion 500 mL, Intravenous, at 50 mL/hr, CONTINUOUS, Starting on Thu01/26/24 at 1515, Until Thu01/26/24 at 2044Indications:Lung transplant status, bilateral (HCC) Start Infusion 01/26/2024 2:20 PM EST 500 mL 50 mL/hr documented in this encounter Care Teams Leadership Coach Relationship Specialty Start Date End Date Peter Larsen DO [address] [place] [address] PCP - General Family Medicine 01/04/20 documented as of this encounter
--- NOTE | 2024-03-26 09:42 | Emergency Department Note ---
Impression & Plan Acute respiratory failure with hypoxia, Scleroderma with pulmonary involvement, Lung transplant status, bilateral, Respiratory syncytial virus (RSV) ED Provider Note NAME: MESERET MANUEL AGE: 53 SEX: F : 1970 ARRIVES VIA: Walk-In INFORMANT: Patient ED PROVIDER(S): Yogi Macias DO CHIEF COMPLAINT: Shortness of breath HPI: Patient is a 53-year-old female with a past medical history of scleroderma involving her lungs with lung transplant 13 months ago. Patient notes that she was scoped this Thursday at [facility]. Testing came back yesterday positive for RSV. She started coughing on Thursday. She notes shortness of breath started yesterday and she placed her self back on oxygen which she normally does not wear. She admits to chest tightness since yesterday cough and congestion. Denies any belly pain nausea vomiting or diarrhea. No dysuria urgency or frequency. No other exacerbating or remitting factors. ADDITIONAL HISTORY OBTAINED: Per HPI Chronic Medical/Social Conditions Affecting Care: Per HPI PAST MEDICAL HISTORY:See Below PAST SURGICAL HISTORY:See Below FAMILY HISTORY:See Below SOCIAL HISTORY:See Below HOME MEDICATIONS:See Below ALLERGIES:See Below VITALS:See Below PHYSICAL EXAMINATION: GENERAL: Sitting up in bed, alert, conically ill-appearing, disheveled EYE EXAM: normal conjunctiva. PERRL and EOM's grossly intact. OROPHARYNX: Moist mucous membranes NECK: supple, no nuchal rigidity, no adenopathy, non-tender LUNGS: Diffuse rhonchi bilaterally. Normal chest wall mechanics HEART: Tachycardic, S1 normal and S2 normal ABDOMEN: abdomen soft, non-tender, normo-active bowel sounds, no masses, no rebound or guarding. UPPER EXTREMITIES: upper extremities are grossly normal. LOWER EXTREMITIES: No pitting edema. Calves are equal bilaterally NEURO EXAM: Normal sensorium, cranial nerves II-XII grossly intact, normal speech, no gross weakness of arms, no gross weakness of legs. MEDICAL DECISION MAKING: Patient is a 53-year-old female who presents to the ER with bilateral lung transplant secondary to scleroderma of the lungs. Transplants were about 13 months ago. IV was established blood work was obtained. She was found to be hypoxic. Labs show no significant leukocytosis or anemia. INR unremarkable. BMP along LFTs bilirubin was unremarkable. Troponin was negative. Pro-Case was normal. UA was clean. Viral panel was positive for RSV. With the bilateral lung transplants I discussed the case with Dr. Shawn flores from [facility] where the patient had her surgery. Patient was accepted in transfer. He notes this is likely not going to be for 24 hours. Following this I discussed with our hospitalist who initially declined. I consulted our car mover. Patient was covered with IV steroids, cefepime and azithromycin. Per you pain recent bronc performed on Thursday had negative cultures but she was positive for RSV. Recommends holding mycophenolate per [facility] and continuing ABX. Patient was titrated up from 4 L to high flow nasal cannula. Her respiratory rate did improve significantly. She was seen by our car mover who recommended CT angio of the chest. Unable to obtain an 18-gauge for this. Will defer to the hospitalist and car mover for further management here. Patient was also given neb treatments while here. On repeat exam around 415 patient is talking in full sentences without any difficulty sitting in chair. Consults/Care Managements Discussions: Per [facility] Triage Nursing notes reviewed. Limited review of prior medical records performed Vital Signs: reviewed and remarkable for tachycardia Differential diagnosis: Differential diagnoses includes but is not limited to pneumonia, bronchitis, COPD/Asthma exacerbation, pneumothorax, pulmonary embolism, congestive heart failure, acute coronary syndrome ER treatment provided: See below Diagnostics interpreted by me include EKG and cardiac monitoring as listed below: -Cardiac Monitoring: An order was placed for continuous cardiac monitoring. The monitor shows a rate of 101 with sinus rhythm. -ECG: Sinus tachycardia rate of 108 Normal axis No PVCs QTc 450 -Laboratory studies:Interpreted by me as stated above in MDM and shown below. Imaging studies: Xrays: As interpreted by me: Portable AP upright 1 view of the chest shows questionable right infiltrate CTs show: none Procedures:none Critical Care: I have [id number] spent 75minutes of critical care time in the direct management of this patient. This includes bedside care, interpretation of diagnostic studies, and testing, discussion with consultants, patient, and family members, and other required patient management activities. This 75 minutes is in excess of all separately billable procedures. 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 Pneumonia (Acute) Routine gynecological examination Weight gain (Acute) Uterine tenderness (Acute) Situational depression (Acute) Encounter for pre-operative examination Acute appendicitis (Acute) Osteopenia Medical History Chronic respiratory failure with hypoxia Interstitial lung disease History of anesthesia reaction slow to wake up O2 dependent continuous 3 L at rest 4 L w/ activity Interstitial lung disease from scleroderma-- pulmon dr karthik NICOLAS last visit 10/2021 Raynaud's disease Pulmonary hypertension currently being evaluated for double lung transplant at [facility] 09/2021 Surgical History Lung transplant status, bilateral History of laparoscopic appendectomy History of tooth extraction History of skin surgery to remove excess skin after weight loss ---Slow to wake up Family History Grandmother Diabetes Aunt Myocardial infarction Uncle Myocardial infarction Other No family history of adverse response to anesthesia Denies family history of Ovarian cancer Prostate cancer Breast cancer Colorectal cancer Social History Smoking Status: Never smoker Tobacco Type: Cigarettes Age Started Using Tobacco: 17; Age Quit Using Tobacco: 37; packs per day: 1; Second Hand Exposure: No; Do You Dip or Chew Tobacco: No; Hx Alcohol Use: No Hx Substance Use: No Preferred Language: Qatari Communication Ability: Effective Visual Impairment: No Limitations Hearing Ability: Normal Bank Advisor Required: No Beliefs That Will Affect Care: None marital status: Current Living Situation: Spouse current occupational status: disabled How many Children do You have: 3 Feels Safe at Home: Yes Childhood Exposure to Second-Hand Smoke: No Diet: other Diet Comment: Patient has a feeding tube post bilateral lung transplant. caffeine: Yes during the past year weight has: remained stable Dental Care, Regularly: Yes Physical Activity Frequency: Daily Seatbelt Use: always Sunscreen Use: Yes Assistive Devices: Glasses Allergies Allergies Allergy/AdvReac Type Severity Reaction Status Date / Time povidone-iodine Allergy SWELLING Verified 03/26/24 12:15 [From Betadine] soap [From Betadine] Allergy SWELLING Verified 03/26/24 12:15 succinylcholine Allergy Unknown Unverified 03/26/24 12:57 NSAIDS (Non-Steroidal AdvReac Unknown Unverified 03/26/24 12:57 Anti-Inflamma Home Meds Home Medications Medication Instructions Recorded Confirmed mycophenolate mofetil 500 mg tablet 500 mg PO Q12H 01/28/21 03/26/24 trazodone 50 mg tablet 25 mg PO HS PRN Sleep 11/22/21 03/26/24 metronidazole 0.75 % topical cream 1 applic topical BID 01/21/23 03/26/24 acetaminophen 325 mg tablet 325 mg PO QID PRN Pain 07/29/23 03/26/24 (Tylenol) albuterol sulfate 90 mcg/actuation 2 puff inhalation Q6H PRN SOB 07/29/23 03/26/24 aerosol inhaler (Ventolin HFA) cholecalciferol (vitamin D3) 25 25 mcg PO DAILY 07/29/23 03/26/24 mcg (1,000 unit) capsule letermovir 480 mg tablet (Prevymis) 480 mg PO DAILY 07/29/23 03/26/24 multivitamin (One Daily 1 tab PO DAILY 07/29/23 03/26/24 Multivitamin tablet) prednisone 10 mg tablet 10 mg PO DAILY 07/29/23 03/26/24 sodium chloride 3 % for 4 ml inhalation BID 07/29/23 03/26/24 nebulization citalopram 10 mg tablet 10 mg PO DAILY 03/26/24 03/26/24 lansoprazole 30 mg capsule,delayed 30 mg PO QAM 03/26/24 03/26/24 release metoclopramide HCl 5 mg tablet 5 mg PO Q8H 03/26/24 03/26/24 sulfamethoxazole 400 1 tab PO DAILY 03/26/24 03/26/24 mg-trimethoprim 80 mg tablet tacrolimus 0.5 mg capsule, 0.5 mg PO DAILY 03/26/24 03/26/24 immediate-release tacrolimus 1 mg capsule, 2 mg PO Q12H 03/26/24 03/26/24 immediate-release valacyclovir 500 mg tablet 500 mg PO DAILY 03/26/24 03/26/24 Previous Rx's Medication Instructions Recorded famotidine 20 mg tablet 20 mg PO BID #60 tabs 04/15/22 pantoprazole 40 mg tablet,delayed 40 mg PO DAILY #0 tabs 01/23/23 release Results & Data (ED) Vital Signs Vital Signs - 24 hr 03/26/24 09:29 03/26/24 09:39 03/26/24 09:40 Temperature 36.3 C L Temperature Source Temporal Artery Scan Pulse Rate 109 H 106 H Pulse Rate [Apical] Pulse Rate from SpO2 Sensor Respiratory Rate 22 28 H Respiratory Effort / Characteristics Non-Labored Spontaneous Respiratory Depth Normal Blood Pressure 134/88 152/93 H Blood Pressure Mean 103 129 Blood Pressure Position Sitting Pulse Oximetry 92 93 93 Oxygen Delivery Method Nasal Cannula Nasal Cannula Nasal Cannula Oxygen Flow Rate 3 4 4 Fraction of Inspired Oxygen Sepsis Recent Fever Within 48 Hours No Sepsis New/Unexplained Change in Mental Status No Sepsis Action Taken by Nursing Physician Notified 03/26/24 09:50 03/26/24 10:00 03/26/24 10:01 Temperature Temperature Source Pulse Rate 106 H 109 H 106 H Pulse Rate [Apical] Pulse Rate from SpO2 Sensor 109 H Respiratory Rate 28 H 30 H 28 H Respiratory Effort / Characteristics Respiratory Depth Blood Pressure 134/94 111/84 Blood Pressure Mean 107 92 Blood Pressure Position Pulse Oximetry 93 93 93 Oxygen Delivery Method Nasal Cannula Nasal Cannula Nasal Cannula Oxygen Flow Rate 4 4 4 Fraction of Inspired Oxygen Sepsis Recent Fever Within 48 Hours Sepsis New/Unexplained Change in Mental Status Sepsis Action Taken by Nursing 03/26/24 10:04 03/26/24 10:05 03/26/24 10:15 Temperature Temperature Source Pulse Rate 105 H Pulse Rate [Apical] Pulse Rate from SpO2 Sensor Respiratory Rate 24 Respiratory Effort / Characteristics Spontaneous Respiratory Depth Blood Pressure 123/87 Blood Pressure Mean 99 Blood Pressure Position Pulse Oximetry 93 94 Oxygen Delivery Method Nasal Cannula Nasal Cannula Oxygen Flow Rate 4 4 Fraction of Inspired Oxygen Sepsis Recent Fever Within 48 Hours Sepsis New/Unexplained Change in Mental Status Sepsis Action Taken by Nursing 03/26/24 10:16 03/26/24 10:26 03/26/24 10:30 Temperature 36.7 C Temperature Source Oral Pulse Rate 106 H 106 H Pulse Rate [Apical] Pulse Rate from SpO2 Sensor Respiratory Rate 20 Respiratory Effort / Characteristics Respiratory Depth Blood Pressure 118/82 Blood Pressure Mean 97 Blood Pressure Position Pulse Oximetry 92 Oxygen Delivery Method Nasal Cannula Oxygen Flow Rate 4 Fraction of Inspired Oxygen Sepsis Recent Fever Within 48 Hours Sepsis New/Unexplained Change in Mental Status Sepsis Action Taken by Nursing 03/26/24 11:00 03/26/24 11:15 03/26/24 11:30 Temperature Temperature Source Pulse Rate 101 H Pulse Rate [Apical] Pulse Rate from SpO2 Sensor 101 H Respiratory Rate 24 Respiratory Effort / Characteristics Respiratory Depth Blood Pressure 120/82 121/76 137/101 H Blood Pressure Mean 94 91 109 Blood Pressure Position Pulse Oximetry 96 Oxygen Delivery Method Nasal Cannula Oxygen Flow Rate 4 Fraction of Inspired Oxygen Sepsis Recent Fever Within 48 Hours Sepsis New/Unexplained Change in Mental Status Sepsis Action Taken by Nursing 03/26/24 11:30 03/26/24 11:45 03/26/24 12:00 Temperature Temperature Source Pulse Rate 121 H 119 H Pulse Rate [Apical] Pulse Rate from SpO2 Sensor Respiratory Rate 21 24 Respiratory Effort / Characteristics Respiratory Depth Blood Pressure 137/101 H 122/97 123/80 Blood Pressure Mean 109 113 104 Blood Pressure Position Pulse Oximetry 94 94 Oxygen Delivery Method High Flow Nasal Cannula High Flow Nasal Cannula Oxygen Flow Rate 25 25 Fraction of Inspired Oxygen Sepsis Recent Fever Within 48 Hours Sepsis New/Unexplained Change in Mental Status Sepsis Action Taken by Nursing 03/26/24 12:07 03/26/24 12:15 03/26/24 12:45 Temperature Temperature Source Pulse Rate 118 H Pulse Rate [Apical] 118 H Pulse Rate from SpO2 Sensor Respiratory Rate 22 24 Respiratory Effort / Characteristics Spontaneous Short of Breath Respiratory Depth Blood Pressure 125/81 119/84 Blood Pressure Mean 109 93 Blood Pressure Position Pulse Oximetry 94 91 Oxygen Delivery Method High Flow Nasal Cannula High Flow Nasal Cannula Oxygen Flow Rate 25 25 Fraction of Inspired Oxygen 40 Sepsis Recent Fever Within 48 Hours Sepsis New/Unexplained Change in Mental Status Sepsis Action Taken by Nursing 03/26/24 13:00 03/26/24 13:15 03/26/24 13:15 Temperature Temperature Source Pulse Rate 117 H 117 H Pulse Rate [Apical] Pulse Rate from SpO2 Sensor 118 H 122 H Respiratory Rate 28 H 22 Respiratory Effort / Characteristics Respiratory Depth Blood Pressure 127/86 127/86 Blood Pressure Mean 99 101 Blood Pressure Position Pulse Oximetry 92 94 Oxygen Delivery Method High Flow Nasal Cannula High Flow Nasal Cannula Oxygen Flow Rate 25 25 Fraction of Inspired Oxygen Sepsis Recent Fever Within 48 Hours Sepsis New/Unexplained Change in Mental Status Sepsis Action Taken by Nursing 03/26/24 13:30 03/26/24 13:45 03/26/24 14:15 Temperature Temperature Source Pulse Rate 115 H 114 H 114 H Pulse Rate [Apical] Pulse Rate from SpO2 Sensor 116 H 116 H Respiratory Rate 27 H 33 H 14 Respiratory Effort / Characteristics Respiratory Depth Blood Pressure 129/99 125/88 132/88 Blood Pressure Mean 109 100 102 Blood Pressure Position Pulse Oximetry 94 93 94 Oxygen Delivery Method High Flow Nasal Cannula High Flow Nasal Cannula High Flow Nasal Cannula Oxygen Flow Rate 25 25 25 Fraction of Inspired Oxygen Sepsis Recent Fever Within 48 Hours Sepsis New/Unexplained Change in Mental Status Sepsis Action Taken by Nursing 03/26/24 14:33 03/26/24 14:33 03/26/24 15:00 Temperature Temperature Source Pulse Rate 111 H 113 H 113 H Pulse Rate [Apical] Pulse Rate from SpO2 Sensor 113 H Respiratory Rate 27 H 17 Respiratory Effort / Characteristics Respiratory Depth Blood Pressure 125/89 Blood Pressure Mean 99 Blood Pressure Position Pulse Oximetry 95 94 Oxygen Delivery Method High Flow Nasal Cannula Oxygen Flow Rate 25 Fraction of Inspired Oxygen Sepsis Recent Fever Within 48 Hours Sepsis New/Unexplained Change in Mental Status Sepsis Action Taken by Nursing 03/26/24 15:15 03/26/24 15:30 03/26/24 15:42 Temperature Temperature Source Pulse Rate 113 H 114 H Pulse Rate [Apical] Pulse Rate from SpO2 Sensor 113 H 114 H Respiratory Rate 13 25 H Respiratory Effort / Characteristics Respiratory Depth Blood Pressure 135/91 134/91 Blood Pressure Mean 105 106 Blood Pressure Position Pulse Oximetry 97 96 Oxygen Delivery Method High Flow Nasal Cannula High Flow Nasal Cannula Oxygen Flow Rate 25 25 Fraction of Inspired Oxygen Sepsis Recent Fever Within 48 Hours Sepsis New/Unexplained Change in Mental Status Sepsis Action Taken by Nursing Laboratory Data 03/26/24 10:39 03/26/24 10:39 Lab Results 03/26/24 03/26/24 03/26/24 Range/Units 09:41 10:39 10:54 WBC 9.81 (4.8-10.8) K/ul RBC 4.96 (4.20-5.40) M/uL Hgb 14.2 (12.0-16.0) g/dl Hct 42.8 (37.0-47.0) % MCV 86.3 (80.0-100.0) fL MCH 28.6 (25.0-34.0) pg MCHC 33.2 (32.0-36.0) g/dL RDW Std Deviation 44.6 (36.4-46.3) fL RDW Coeff of Nubia 14.1 (11.5-14.5) % Plt Count 244 (130-400) K/uL MPV 10.1 (9.4-12.4) fL Immature Gran % (Auto) 0.3 % Neut % (Auto) 63.8 % Lymph % (Auto) 23.3 % Worth % (Auto) 8.2 % Eos % (Auto) 4.0 % Baso % (Auto) 0.4 % Neut # (Auto) 6.26 (1.40-6.50) K/uL Lymph # (Auto) 2.29 (1.20-3.40) K/uL Worth # (Auto) 0.80 H (0.11-0.59) K/uL Eos # (Auto) 0.39 (0.00-0.50) K/uL Baso # (Auto) 0.04 (0.00-0.20) K/uL Immature Gran # (Auto) 0.03 (0.01-0.20) K/uL PT 10.9 (9.0-12.0) Seconds INR 1.0 (0.9-1.1) Sodium 139 (136-145) mmol/L Potassium 4.0 (3.5-5.1) mmol/L Chloride 106 (98-107) mmol/L Carbon Dioxide 25 (21-32) mmol/L Anion Gap 8 (3-11) BUN 16 (6-23) mg/dl Creatinine 0.72 (0.6-1.2) mg/dl Est Cr Clr Drug Dosing 83.2 ml/min eGFR 101.17 BUN/Creatinine Ratio 22.2 H (10-20) Glucose 84 (70-99(Fasting)) mg/dl Lactate 0.9 (0.4-2.0) mmol/L Calcium 9.1 (8.6-10.3) mg/dl Magnesium 1.9 (1.7-2.4) mg/dl Total Bilirubin 0.6 (0.2-1.0) mg/dl Direct Bilirubin 0.1 (0-0.2) mg/dl AST 17 (13-39) U/L ALT 17 (7-52) U/L Alkaline Phosphatase 79 (34-104) U/L Troponin I High Sens 2.6 (0-14) pg/ml Total Protein 7.8 (6.0-8.3) gm/dl Albumin 4.8 (3.4-5.0) gm/dl Procalcitonin 0.08 (0-0.5) ng/ml Urine Color Urine Appearance (Clear) Urine pH (4.5-7.5) Ur Specific Devers (1.000-1.030) Urine Protein (Negative) Urine Glucose (UA) (Negative) Urine Ketones (Negative) Urine Blood (Negative) Urine Nitrite (Negative) Urine Bilirubin (Negative) Urine Urobilinogen (Negative) Ur Leukocyte Esterase (Negative) Adenovirus (PCR) Not Detected (NotDetected) B. pertussis DNA (PCR) Not Detected (NotDetected) B.parapertussis DNA PCR Not Detected (NotDetected) C. pneumoniae DNA (PCR) Not Detected (NotDetected) Coronavirus OC43 (PCR) Not Detected (NotDetected) Coronavirus HKU1 (PCR) Not Detected (NotDetected) Coronavirus 229E (PCR) Not Detected (NotDetected) SARS-CoV-2 (PCR) Not Detected (NotDetected) Coronavirus NL63 (PCR) Not Detected (NotDetected) Human Metapneumovir PCR Not Detected (NotDetected) Influenza Type A (PCR) Not Detected (NotDetected) Influenza Type B (PCR) Not Detected (NotDetected) M. pneumoniae (PCR) Not Detected (NotDetected) Parainfluenza 1 (PCR) Not Detected (NotDetected) Parainfluenza 2 (PCR) Not Detected (NotDetected) Parainfluenza 3 (PCR) Not Detected (NotDetected) Parainfluenza 4 (PCR) Not Detected (NotDetected) RSV (PCR) DETECTED A (NotDetected) Entero/Rhino (PCR) Not Detected (NotDetected) 03/26/24 Range/Units 13:08 WBC (4.8-10.8) K/ul RBC (4.20-5.40) M/uL Hgb (12.0-16.0) g/dl Hct (37.0-47.0) % MCV (80.0-100.0) fL MCH (25.0-34.0) pg MCHC (32.0-36.0) g/dL RDW Std Deviation (36.4-46.3) fL RDW Coeff of Nubia (11.5-14.5) % Plt Count (130-400) K/uL MPV (9.4-12.4) fL Immature Gran % (Auto) % Neut % (Auto) % Lymph % (Auto) % Worth % (Auto) % Eos % (Auto) % Baso % (Auto) % Neut # (Auto) (1.40-6.50) K/uL Lymph # (Auto) (1.20-3.40) K/uL Worth # (Auto) (0.11-0.59) K/uL Eos # (Auto) (0.00-0.50) K/uL Baso # (Auto) (0.00-0.20) K/uL Immature Gran # (Auto) (0.01-0.20) K/uL PT (9.0-12.0) Seconds INR (0.9-1.1) Sodium (136-145) mmol/L Potassium (3.5-5.1) mmol/L Chloride (98-107) mmol/L Carbon Dioxide (21-32) mmol/L Anion Gap (3-11) BUN (6-23) mg/dl Creatinine (0.6-1.2) mg/dl Est Cr Clr Drug Dosing ml/min eGFR BUN/Creatinine Ratio (10-20) Glucose (70-99(Fasting)) mg/dl Lactate (0.4-2.0) mmol/L Calcium (8.6-10.3) mg/dl Magnesium (1.7-2.4) mg/dl Total Bilirubin (0.2-1.0) mg/dl Direct Bilirubin (0-0.2) mg/dl AST (13-39) U/L ALT (7-52) U/L Alkaline Phosphatase (34-104) U/L Troponin I High Sens (0-14) pg/ml Total Protein (6.0-8.3) gm/dl Albumin (3.4-5.0) gm/dl Procalcitonin (0-0.5) ng/ml Urine Color Yellow Urine Appearance Clear (Clear) Urine pH 6.5 (4.5-7.5) Ur Specific Devers 1.012 (1.000-1.030) Urine Protein Negative (Negative) Urine Glucose (UA) Negative (Negative) Urine Ketones 2+ H (Negative) Urine Blood Negative (Negative) Urine Nitrite Negative (Negative) Urine Bilirubin Negative (Negative) Urine Urobilinogen Negative (Negative) Ur Leukocyte Esterase Negative (Negative) Adenovirus (PCR) (NotDetected) B. pertussis DNA (PCR) (NotDetected) B.parapertussis DNA PCR (NotDetected) C. pneumoniae DNA (PCR) (NotDetected) Coronavirus OC43 (PCR) (NotDetected) Coronavirus HKU1 (PCR) (NotDetected) Coronavirus 229E (PCR) (NotDetected) SARS-CoV-2 (PCR) (NotDetected) Coronavirus NL63 (PCR) (NotDetected) Human Metapneumovir PCR (NotDetected) Influenza Type A (PCR) (NotDetected) Influenza Type B (PCR) (NotDetected) M. pneumoniae (PCR) (NotDetected) Parainfluenza 1 (PCR) (NotDetected) Parainfluenza 2 (PCR) (NotDetected) Parainfluenza 3 (PCR) (NotDetected) Parainfluenza 4 (PCR) (NotDetected) RSV (PCR) (NotDetected) Entero/Rhino (PCR) (NotDetected) Administered Medications Discontinued Medications Acetaminophen (Acetaminophen 325 Mg Tab) 650 mg PO NOW STA Stop: 03/26/24 13:39 Last Admin: 03/26/24 14:05 Dose: 650 mg Documented By: CEF Albuterol (Albut/Ipratrop 3mg/0.5mg Neb 3 Ml Vial) 9 ml NEB NOW STA; Protocol Stop: 03/26/24 09:40 Last Admin: 03/26/24 11:03 Dose: 9 ml Documented By: CEF Azithromycin (Azithromycin 500 Mg Vial) 500 mg IV NOW STA; Protocol Stop: 03/26/24 12:33 Last Admin: 03/26/24 12:56 Dose: Not Given Documented By: CEF Sodium Chloride (Nss) 1,000 mls @ 999 mls/hr IV .Q1H1M ONE Stop: 03/26/24 10:38 Last Infusion: 03/26/24 11:37 Dose: Infused Documented By: Admin: 03/26/24 10:29 Dose: 999 mls/hr Documented By: AMS Cefepime HCl (Maxipime 2000mg) 2,000 mg in 20 mls @ 5 mls/min IV NOW STA; Protocol Stop: 03/26/24 09:42 Last Admin: 03/26/24 10:57 Dose: 5 mls/min Documented By: CEF Azithromycin 500 mg/ Sodium (Chloride) 255 mls @ 127.5 mls/hr IV NOW ONE Stop: 03/26/24 14:44 Last Infusion: 03/26/24 15:10 Dose: 127.5 mls/hr Documented By: Infusion: 03/26/24 14:04 Dose: 0 mls/hr Documented By: Admin: 03/26/24 13:12 Dose: 127.5 mls/hr Documented By: CEF Methylprednisolone (Methylprednisolone 125 Mg/2 Ml Vial) 40 mg IV NOW STA Stop: 03/26/24 09:40 Last Admin: 03/26/24 10:29 Dose: 40 mg Documented By: TREMAYNE Imaging Data Radiologist's Impression: Chest X-Ray 03/26/24 09:37 EXAM: Radiograph of the Chest 1 View INDICATION: Sepsis. TECHNIQUE: Frontal view of the chest. COMPARISON: 01/25/2023 FINDINGS: Lungs and pleural spaces: Interstitial and parenchymal scarring present. Very subtle asymmetric groundglass density noted in the right lung base. Heart: Shape and configuration within normal limits allowing for technique. Mediastinum: New clips in the mediastinum. Bones/joints: Interval lower sternotomy changes. Degenerative changes noted throughout the spine. No acute osseous abnormality seen. Soft tissues: No abnormality noted. No radiopaque foreign body noted. Upper abdomen: No abnormality noted. IMPRESSION: Vague groundglass density in the right lung base could reflect scarring from previously seen pneumonia or acute pneumonitis including viral etiologies. Otherwise, mild chronic interstitial and parenchymal scarring present. ACT 112: Negative or not required by law. Electronically signed by Trina Lorenzo 03-26-2024 10:28 AM Discharge Plan Visit Data Chief Complaint: Shortness of Breath/Dyspnea Stated Complaint: RSV, SOB/WEEZING, CHEST TIGHT, DOUBLE LUNG TRANS ED Provider: Yogi Macias Discharge Problem: Acute respiratory failure with hypoxia, Scleroderma with pulmonary involvement, Lung transplant status, bilateral, Respiratory syncytial virus (RSV) Forms Stand Alone Forms: My [facility] Prescriptions Prescriptions: No Action famotidine 20 mg tablet 20 mg PO BID Qty: 60 2RF mycophenolate mofetil 500 mg tablet 500 mg PO Q12H Prevymis 480 mg tablet 480 mg PO DAILY multivitamin [One Daily Multivitamin] Tablet 1 tab PO DAILY acetaminophen [Tylenol] 325 mg tablet 325 mg PO QID PRN (Reason: Pain) prednisone 10 mg tablet 10 mg PO DAILY sodium chloride 3 % solution for nebulization 4 ml inhalation BID albuterol sulfate [Ventolin HFA] 90 mcg/actuation HFA aerosol inhaler 2 puff inhalation Q6H PRN (Reason: SOB) cholecalciferol (vitamin D3) 25 mcg (1,000 unit) capsule 25 mcg PO DAILY metronidazole 0.75 % cream 1 applic TOPICAL BID pantoprazole 40 mg Tablet,Delayed Release (Dr/Ec) 40 mg PO DAILY Qty: 0 0RF trazodone 50 mg Tablet 25 mg PO HS PRN (Reason: Sleep) sulfamethoxazole-trimethoprim 400-80 mg tablet 1 tab PO DAILY citalopram 10 mg tablet 10 mg PO DAILY valacyclovir 500 mg tablet 500 mg PO DAILY metoclopramide HCl 5 mg tablet 5 mg PO Q8H lansoprazole 30 mg capsule,delayed release(DR/EC) 30 mg PO QAM tacrolimus 1 mg capsule 2 mg PO Q12H tacrolimus 0.5 mg capsule 0.5 mg PO DAILY Referrals Referrals: Peter Larsen DO [Primary Care Provider] - Discharge Problem: Respiratory syncytial virus (RSV) Qualifiers: RSV infection type: unspecified Qualified Code(s): B33.8 - Other specified viral diseases
--- NOTE | 2024-03-26 10:28 | XRay Report ---
EXAM: Radiograph of the Chest 1 View INDICATION: Sepsis. TECHNIQUE: Frontal view of the chest. COMPARISON: 01/25/2023 FINDINGS: Lungs and pleural spaces: Interstitial and parenchymal scarring present. Very subtle asymmetric groundglass density noted in the right lung base. Heart: Shape and configuration within normal limits allowing for technique. Mediastinum: New clips in the mediastinum. Bones/joints: Interval lower sternotomy changes. Degenerative changes noted throughout the spine. No acute osseous abnormality seen. Soft tissues: No abnormality noted. No radiopaque foreign body noted. Upper abdomen: No abnormality noted. IMPRESSION: Vague groundglass density in the right lung base could reflect scarring from previously seen pneumonia or acute pneumonitis including viral etiologies. Otherwise, mild chronic interstitial and parenchymal scarring present. ACT 112: Negative or not required by law. Electronically signed by Trina Lorenzo 03-26-2024 10:28 AM
[2024-03-26] MEDS: SODIUM CHLORIDE 0.9% 1,000 ML IV ONE ×2 (10:29→17:03)
[2024-03-26] MEDS: methylPREDNISolone 125 MG/2 ML VIAL IV STA (10:29)
[2024-03-26 10:35] VITALS: TEMP 98.1
[2024-03-26] MEDS: CEFEPIME 2000MG 2,000 MG/20 ML SYR IV STA (10:57)
[2024-03-26 10:59] LABS: Adenovirus PCR Not Detected (NotDetected); Bordetella parapertussis PCR Not Detected (NotDetected); Bordetella pertussis PCR Not Detected (NotDetected); Chlamydia pneumoniae PCR Not Detected (NotDetected); Coronavirus 229E PCR Not Detected (NotDetected); Coronavirus CoV-2 (COVID19)PCR Not Detected (NotDetected); Coronavirus HKU1 PCR Not Detected (NotDetected); Coronavirus NL63 PCR Not Detected (NotDetected); Coronavirus OC43PCR Not Detected (NotDetected); Human Metapneumovirus PCR Not Detected (NotDetected); Influenza A PCR Not Detected (NotDetected); Influenza B PCR Not Detected (NotDetected); Mycoplasma pneumoniae PCR Not Detected (NotDetected); Parainfluenza Virus 1 PCR Not Detected (NotDetected); Parainfluenza Virus 2 PCR Not Detected (NotDetected); Parainfluenza Virus 3 PCR Not Detected (NotDetected); Parainfluenza Virus 4 PCR Not Detected (NotDetected); Respiratory Syncytial VirusPCR DETECTED (NotDetected); Rhinovirus/Enterovirus PCR Not Detected (NotDetected)
[2024-03-26] MEDS: ALBUT/IPRATROP 3MG/0.5MG NEB 3 ML VIAL NEB STA (11:03)
[2024-03-26 11:07] LABS: Basophils # (auto) 0.04 K/uL (0.00-0.20); Basophils % (auto) 0.4 %; Eosinophils # (auto) 0.39 K/uL (0.00-0.50); Hematocrit (blood only) 42.8 % (37.0-47.0); Hemoglobin 14.2 g/dl (12.0-16.0); Immature Granulocytes # (auto) 0.03 K/uL (0.01-0.20); Immature Granulocytes % (auto) 0.3 %; Lymphocytes # (auto) 2.29 K/uL (1.20-3.40); Lymphocytes % (auto) 23.3 %; Mean Corpuscular Hemoglobin 28.6 pg (25.0-34.0); Mean Corpuscular Hgb Conc 33.2 g/dL (32.0-36.0); Mean Corpuscular Volume 86.3 fL (80.0-100.0); Mean Platelet Volume 10.1 fL (9.4-12.4); Monocytes % (auto) 8.2 %; Neutrophils # (auto) 6.26 K/uL (1.40-6.50); Neutrophils % (auto) 63.8 %; Platelet Count 244 K/uL (130-400); RDW Coefficient of Variation 14.1 % (11.5-14.5); RDW Standard Deviation 44.6 fL (36.4-46.3); Red Blood Count 4.96 M/uL (4.20-5.40); White Blood Count 9.81 K/ul (4.8-10.8)
[2024-03-26 11:23] LABS: Albumin Level 4.8 gm/dl (3.4-5.0); BUN Creatinine Ratio 22.2 (10-20); Bilirubin Direct 0.1 mg/dl (0-0.2); Bilirubin,Total 0.6 mg/dl (0.2-1.0); Calcium 9.1 mg/dl (8.6-10.3); Creatinine Clr Calc Pharmacy 83.2 ml/min; Magnesium 1.9 mg/dl (1.7-2.4); Total Protein 7.8 gm/dl (6.0-8.3)
[2024-03-26 11:29] LABS: Troponin I High Sensitivity 2.6 pg/ml (0-14)
[2024-03-26 11:38] LABS: Prothrombin Time 10.9 Seconds (9.0-12.0)
[2024-03-26] MEDS: AZITHROMYCIN 500 MG VIAL IV STA (12:56)
[2024-03-26] MEDS: AZITHROMYCIN 500 MG in SODIUM CHLORIDE 0.9% 250 ML IV ONE (13:12)
[2024-03-26 13:26] LABS: Appearance Urine Clear (Clear); Bilirubin Urine Negative (Negative); Blood Urine Negative (Negative); Color Urine Yellow; Glucose Urine UA Negative (Negative); Ketones Urine 2+ (Negative); Leukocyte Esterase Urine Negative (Negative); Nitrite Urine Negative (Negative); Protein Urine Negative (Negative); Specific Gravity Urine 1.012 (1.000-1.030); Urobilinogen Urine Negative (Negative); pH Urine 6.5 (4.5-7.5)
[2024-03-26] MEDS: ACETAMINOPHEN 325 MG TAB PO STA ×2 (14:05→19:54)
--- NOTE | 2024-03-26 14:35 | Pulmonary Consultation ---
Date of Consultation March 26, 2024 Assessment & Plan (1) Scleroderma with pulmonary involvement: (2) Acute respiratory failure with hypoxia: (3) S/P lung transplant: Plan Chest x-ray 03/26/2024 personally reviewed: Portable film, fair respiratory effort, bilateral costophrenic and cardiophrenic angles are clean, no clear lung infiltrate appreciated --Acute hypoxic respiratory failure Bronchoscopy performed at [facility] 03/21/2024 was positive only for RSV Negative for everything else Respiratory BioFire was positive for RSV on 03/26/2024 Procalcitonin negative -- History of bilateral lung transplant At [facility] around January 2023 Did have mild rejection for which she was given prednisone and was being tapered off On tacrolimus, mycophenolate, prednisone Prophylactic valacyclovir, letermovir, Bactrim --History of scleroderma with ILD This was the reason for lung transplant Plan: Given the significant requirement of oxygen with almost clear chest x-ray, I recommend CTA chest without contrast to make sure there is no pulmonary emboli Patient has been accepted at [facility], pending transfer Further recommendation from pulmonary perspective will be based on CTA chest Continue with prophylactic antibiotics and steroids Pulmonary continue to follow till the patient is in the hospital Case was discussed with Dr. Macias Please note the above document was generated using voice recognition software. It may contain grammatical, syntax or spelling errors.Any formal questions or concerns about the content, text or information contained within the body of this dictation should be directly addressed to the provider for clarification. History of Present Illness History of Present Illness 53-year-old female presented to the hospital with complaints of worsening shortness of breath Past medical history: Scleroderma s/p bilateral lung transplant January 2023 at [facility], history of mild resection on prednisone, anxiety/depression, GERD Pulmonary consulted for history of lung transplant and hypoxia At the time of examination patient's was in the room. Patient was in no significant respiratory distress. Respiratory rate was in the high teens. She was saturating 94-95% on 25 L, 40% FiO2. As per the patient she did have bronchoscopy done last Thursday which showed only RSV. This was performed at [facility]. As per the patient there was no signs of rejection. She has been having cough, does complain of chest congestion and difficulty bringing up the phlegm. Denies any dysuria or diarrhea No nausea or vomiting Fair appetite. They say that she was wheezing occasionally as well. She is compliant with her medications. Allergies Allergy/AdvReac Type Severity Reaction Status Date / Time povidone-iodine Allergy SWELLING Verified 03/26/24 12:15 [From Betadine] soap [From Betadine] Allergy SWELLING Verified 03/26/24 12:15 succinylcholine Allergy Unknown Unverified 03/26/24 12:57 NSAIDS (Non-Steroidal AdvReac Unknown Unverified 03/26/24 12:57 Anti-Inflamma Home Medications Medication Instructions Recorded Confirmed Type mycophenolate mofetil 500 mg tablet 500 mg PO Q12H 01/28/21 03/26/24 History trazodone 50 mg tablet 25 mg PO HS PRN Sleep 11/22/21 03/26/24 History famotidine 20 mg tablet 20 mg PO BID #60 tabs 04/15/22 03/26/24 Rx metronidazole 0.75 % topical cream 1 applic topical BID 01/21/23 03/26/24 History pantoprazole 40 mg tablet,delayed 40 mg PO DAILY #0 tabs 01/23/23 03/26/24 Rx release acetaminophen 325 mg tablet 325 mg PO QID PRN Pain 07/29/23 03/26/24 History (Tylenol) albuterol sulfate 90 mcg/actuation 2 puff inhalation Q6H PRN SOB 07/29/23 03/26/24 History aerosol inhaler (Ventolin HFA) cholecalciferol (vitamin D3) 25 25 mcg PO DAILY 07/29/23 03/26/24 History mcg (1,000 unit) capsule letermovir 480 mg tablet (Prevymis) 480 mg PO DAILY 07/29/23 03/26/24 History multivitamin (One Daily 1 tab PO DAILY 07/29/23 03/26/24 History Multivitamin tablet) prednisone 10 mg tablet 10 mg PO DAILY 07/29/23 03/26/24 History sodium chloride 3 % for 4 ml inhalation BID 07/29/23 03/26/24 History nebulization citalopram 10 mg tablet 10 mg PO DAILY 03/26/24 03/26/24 History lansoprazole 30 mg capsule,delayed 30 mg PO QAM 03/26/24 03/26/24 History release metoclopramide HCl 5 mg tablet 5 mg PO Q8H 03/26/24 03/26/24 History sulfamethoxazole 400 1 tab PO DAILY 03/26/24 03/26/24 History mg-trimethoprim 80 mg tablet tacrolimus 0.5 mg capsule, 0.5 mg PO DAILY 03/26/24 03/26/24 History immediate-release tacrolimus 1 mg capsule, 2 mg PO Q12H 03/26/24 03/26/24 History immediate-release valacyclovir 500 mg tablet 500 mg PO DAILY 03/26/24 03/26/24 History Patient History Medical History Chronic respiratory failure with hypoxia Interstitial lung disease History of anesthesia reaction slow to wake up O2 dependent continuous 3 L at rest 4 L w/ activity Interstitial lung disease from scleroderma-- pulmon dr angeles [facility] last visit 10/2021 Raynaud's disease Pulmonary hypertension currently being evaluated for double lung transplant at [facility] 09/2021 Surgical History Lung transplant status, bilateral History of laparoscopic appendectomy History of tooth extraction History of skin surgery to remove excess skin after weight loss ---Slow to wake up Family History Grandmother Diabetes Aunt Myocardial infarction Uncle Myocardial infarction Other No family history of adverse response to anesthesia Denies family history of Ovarian cancer Prostate cancer Breast cancer Colorectal cancer Social History Smoking Status: Never smoker Tobacco Type: Cigarettes Age Started Using Tobacco: 17; Age Quit Using Tobacco: 37; packs per day: 1; Second Hand Exposure: No; Do You Dip or Chew Tobacco: No; Hx Alcohol Use: No Hx Substance Use: No Preferred Language: Hong Konger Communication Ability: Effective Visual Impairment: No Limitations Hearing Ability: Normal 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 caffeine: Yes during the past year weight has: remained stable Dental Care, Regularly: Yes Physical Activity Frequency: Daily Seatbelt Use: always Sunscreen Use: Yes Assistive Devices: Glasses Review of Systems 2 Review of Systems: All systems reviewed & are unremarkable except as noted in HPI & below Physical Exam 2 Physical Exam: Constitutional: No acute distress HEENT: EOMI, PERRLA Respiratory system: Decreased air entry bilaterally, no wheeze, minimal rhonchi lower lobes, positive crackles bilateral lower lobes CVS: S1-S2 positive, no murmurs or gallops Abdomen: Soft, nontender, nondistended, positive bowel sounds x4 Extremities: +2 pulses bilaterally radialis/ dorsalis pedis, no cyanosis, no edema Neuro: Awake alert oriented x3 Psych: Normal mood and affect G/U: No Mann Skin: no rashes, warm and dry Lymphatic: no cervical or axillary lymphadenopathy Results & Data Results & Data Vital Signs (Past 12 Hours) Vital Signs Temp Pulse Pulse Resp BP Pulse Ox O2 Del Method 03/26/24 13:15 117 H 22 127/86 94 High Flow Nasal Cannula 03/26/24 13:00 117 H 28 H 92 High Flow Nasal Cannula 03/26/24 12:45 118 H 24 119/84 91 High Flow Nasal Cannula 03/26/24 12:15 125/81 03/26/24 12:07 118 H 22 94 High Flow Nasal Cannula 03/26/24 12:00 119 H 24 123/80 94 High Flow Nasal Cannula 03/26/24 11:45 121 H 21 122/97 94 High Flow Nasal Cannula 03/26/24 11:30 137/101 H 03/26/24 11:30 137/101 H 03/26/24 11:15 121/76 03/26/24 11:00 101 H 24 120/82 96 Nasal Cannula 03/26/24 10:30 106 H 20 118/82 92 Nasal Cannula 03/26/24 10:26 36.7 C 03/26/24 10:16 106 H 03/26/24 10:15 105 H 24 123/87 94 Nasal Cannula 03/26/24 10:05 93 Nasal Cannula 03/26/24 10:01 106 H 28 H 111/84 93 Nasal Cannula 03/26/24 10:00 109 H 30 H 93 Nasal Cannula 03/26/24 09:50 106 H 28 H 134/94 93 Nasal Cannula 03/26/24 09:40 106 H 28 H 152/93 H 93 Nasal Cannula 03/26/24 09:39 93 Nasal Cannula 03/26/24 09:29 36.3 C L 109 H 22 134/88 92 Nasal Cannula O2 Flow Rate FiO2 03/26/24 13:15 25 03/26/24 13:00 25 03/26/24 12:45 25 03/26/24 12:15 03/26/24 12:07 25 40 03/26/24 12:00 25 03/26/24 11:45 25 03/26/24 11:30 03/26/24 11:30 03/26/24 11:15 03/26/24 11:00 4 03/26/24 10:30 4 03/26/24 10:26 03/26/24 10:16 03/26/24 10:15 4 03/26/24 10:05 4 03/26/24 10:01 4 03/26/24 10:00 4 03/26/24 09:50 4 03/26/24 09:40 4 03/26/24 09:39 4 03/26/24 09:29 3 Laboratory Results 03/26/24 10:39 03/26/24 10:39 PG Care Time/CCT Total # of Minutes Spent Total Time Spent with Patient: Total time spent is greater than 50% in coordination of care (as documented) at patient's floor/unit and/or counseling patient: Coding Level of Care Code 91238 INT INP/OBS CARE 3/75MIN Diagnoses Scleroderma with pulmonary involvement M34.9 Acute respiratory failure with hypoxia J96.01 S/P lung transplant Z94.2
--- NOTE | 2024-03-26 16:17 | History & Physical Report ---
Date of Service March 26, 2024 Assessment & Plan (1) Acute hypoxemic respiratory failure: Plan: Assessment: 1. Acute hypoxemic respiratory failure. Pulmonary toilet as described below. This is in the setting of a subacute bilateral lung transplantation a took place at [facility] December 2022. The patient is excepted on transfer to [facility] as an inpatient. ER has told us that this is gone to be at least a 48-hour wait per the transplant attending at [facility] therefore request has been made for admission locally while we are awaiting transfer. Will meet the patient to the critical care unit. Pulmonology is already been consulted and evaluated patient. 2. Acute respiratory syncytial virus. Supportive quick care and pulmonary toilet as discussed. Nebulizers. Oxygen therapy. 3. Rule out concomitant bacterial pneumonia. She is status post bronchoscopy 5 days ago is a routine posttransplant bronchoscopy. MRSA screen. If positive add vancomycin. In the interim per the ER attending transplant center recommending continuation of cefepime and azithromycin. Sputum cultures have been ordered. Patient is on chronic steroid therapy she received Solu-Medrol in the ER. I do not see a need for stress dose steroids. She is been normotensive. If this should change stress dose hydrocortisone should be considered at 100 mg IV every 6 hours. 4. Concern for pulmonary embolism. Again extensive conversation with pulmonology on-call. Recommending CTA. Appropriate IV access yet to be obtained. Therefore ultrasounds of lower extremities been ordered. And empiric heparinization will take place until we can sure there is no PE. She is tachycardic. Will do an echocardiogram to see if there is any right heart strain. 5. Scleroderma. 6. Ex tobacco abuse quit smoking in 2007. 7. GERD. Continue PPI. 8. Status post lung transplantation as discussed above. Per the transplant center and the ER attending they are recommending holding mycophenolate. Will continue tacrolimus and get a level. 9. Anxiety. Continue anxiolytic. 10. Chronic suppressive therapy due to lung transplantation with Bactrim and valacyclovir. Will continue as on chronically. Plan: As discussed above. Please refer to orders for further planning. Again, extensive mount of time spent in the coordination of care of this patient today discussing with the ER attending at least on 5 separate occasions as well as pulmonology on-call locally on Dr. Derrick Ragsdale Communication. History of Present Illness Chief Complaint: Shortness of breath. RSV positivity. Primary Care Provider: Peter Larsen DO This is a 53-year-old female with a very complex past medical history including scleroderma which resulted into bilateral lung transplantation in December 2022. This took place at [facility] the donor was a 30-year-old patient. Thursday of this week (5 days ago) the patient underwent routine bronchoscopy at [facility] status post lung transplantation. This apparently was a routine without complication. She was notified that she did test positive for RSV. She was asymptomatic at that time. Over the last 24 hours to 36 hours she has been getting increased shortness of breath came to the ER for further evaluation and treatment. She is typically oxygen independent. She has been escalated to high flow oxygen therapy currently on 25 L at 40% FiO2. Labs in our ER did demonstrate RSV positivity otherwise her BioFire respiratory panel was negative. Laboratory data including CBC and CMP were unremarkable. Urinalysis was negative. Chest x-ray was positive for vague groundglass opacities in the right lung. Question pneumonitis versus viral etiology versus pneumonia. Course in the ER she received methylprednisone 40 mg. IV azithromycin. IV cefepime. Several hours ago were initially contacted by the ER attending to request admission to [facility]. We recommended contacting the transplant center first as well as local pulmonology. [facility] has accepted the patient on transfer but per the ER attending they are reporting that at least going to be 48 hours till a bed is available. Local pulmonology was consulted they are requesting a CTA. Appropriate IV access is felt to be obtained in the ER to obtain CTA. I personally discussed this with pulmonology attending roll on man and recommendation has been made to empirically heparinize the patient until we can get a CTA. In the interim we will do lower extremity duplexes. Therefore at this time due to the fact it does appear to be an extended hold waiting on an inpatient bed at the tertiary care center, and studies have shown that increase length of stay in the ER increases morbidity and mortality, we will go ahead admit the patient to the ICU while awaiting transfer. The patient is fine with this plan of care I discussed this with her in depth. Allergies Allergy/AdvReac Type Severity Reaction Status Date / Time povidone-iodine Allergy SWELLING Verified 03/26/24 12:15 [From Betadine] soap [From Betadine] Allergy SWELLING Verified 03/26/24 12:15 succinylcholine Allergy Unknown Unverified 03/26/24 12:57 NSAIDS (Non-Steroidal AdvReac Unknown Unverified 03/26/24 12:57 Anti-Inflamma Home Medications Medication Instructions Recorded Confirmed Type mycophenolate mofetil 500 mg tablet 500 mg PO Q12H 01/28/21 03/26/24 History trazodone 50 mg tablet 25 mg PO HS PRN Sleep 11/22/21 03/26/24 History famotidine 20 mg tablet 20 mg PO BID #60 tabs 04/15/22 03/26/24 Rx metronidazole 0.75 % topical cream 1 applic topical BID 01/21/23 03/26/24 History pantoprazole 40 mg tablet,delayed 40 mg PO DAILY #0 tabs 01/23/23 03/26/24 Rx release acetaminophen 325 mg tablet 325 mg PO QID PRN Pain 07/29/23 03/26/24 History (Tylenol) albuterol sulfate 90 mcg/actuation 2 puff inhalation Q6H PRN SOB 07/29/23 03/26/24 History aerosol inhaler (Ventolin HFA) cholecalciferol (vitamin D3) 25 25 mcg PO DAILY 07/29/23 03/26/24 History mcg (1,000 unit) capsule letermovir 480 mg tablet (Prevymis) 480 mg PO DAILY 07/29/23 03/26/24 History multivitamin (One Daily 1 tab PO DAILY 07/29/23 03/26/24 History Multivitamin tablet) prednisone 10 mg tablet 10 mg PO DAILY 07/29/23 03/26/24 History sodium chloride 3 % for 4 ml inhalation BID 07/29/23 03/26/24 History nebulization citalopram 10 mg tablet 10 mg PO DAILY 03/26/24 03/26/24 History lansoprazole 30 mg capsule,delayed 30 mg PO QAM 03/26/24 03/26/24 History release metoclopramide HCl 5 mg tablet 5 mg PO Q8H 03/26/24 03/26/24 History sulfamethoxazole 400 1 tab PO DAILY 03/26/24 03/26/24 History mg-trimethoprim 80 mg tablet tacrolimus 0.5 mg capsule, 0.5 mg PO DAILY 03/26/24 03/26/24 History immediate-release tacrolimus 1 mg capsule, 2 mg PO Q12H 03/26/24 03/26/24 History immediate-release valacyclovir 500 mg tablet 500 mg PO DAILY 03/26/24 03/26/24 History Past Med/Surg History Problem List (Updated 03/26/24 @ 16:18 by Obed Thakkar, PhD, DO) Acute hypoxemic respiratory failure Respiratory syncytial virus (RSV) (Acute) Lung transplant status, bilateral (Acute) Acute respiratory failure with hypoxia (Acute) Scleroderma with pulmonary involvement (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 Pneumonia (Acute) Routine gynecological examination Weight gain (Acute) Uterine tenderness (Acute) Situational depression (Acute) Encounter for pre-operative examination Acute appendicitis (Acute) Osteopenia Medical History Chronic respiratory failure with hypoxia Interstitial lung disease History of anesthesia reaction slow to wake up O2 dependent continuous 3 L at rest 4 L w/ activity Interstitial lung disease from scleroderma-- pulmon dr karthik NICOLAS last visit 10/2021 Raynaud's disease Pulmonary hypertension currently being evaluated for double lung transplant at [facility] 09/2021 Surgical History Lung transplant status, bilateral History of laparoscopic appendectomy History of tooth extraction History of skin surgery to remove excess skin after weight loss ---Slow to wake up Family History Grandmother Diabetes Aunt Myocardial infarction Uncle Myocardial infarction Other No family history of adverse response to anesthesia Denies family history of Ovarian cancer Prostate cancer Breast cancer Colorectal cancer Social History Smoking Status: Never smoker Tobacco Type: Cigarettes Age Started Using Tobacco: 17; Age Quit Using Tobacco: 37; packs per day: 1; Second Hand Exposure: No; Do You Dip or Chew Tobacco: No; Hx Alcohol Use: No Hx Substance Use: No Preferred Language: Persian Communication Ability: Effective Visual Impairment: No Limitations Hearing Ability: Normal 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 caffeine: Yes during the past year weight has: remained stable Dental Care, Regularly: Yes Physical Activity Frequency: Daily Seatbelt Use: always Sunscreen Use: Yes Assistive Devices: Glasses Review of Systems Review of Systems: A 10 point review of system was obtained and unless otherwise stated here or in history of present illness are negative and noncontributory to chief complaint. Physical Exam Physical Exam: In General: In general this is a 53-year-old female who is alert oriented x 3 at the time of my exam. She is seated in the bedside chair at the time my exam she is tolerating high flow oxygen at this time. She is able to communicate in full sentences. She is not using accessory muscles of respiration. HEENT: Normocephalic atraumatic pupils are equal round and reactive to light bilaterally. No scleral icterus no conjunctival injection external auditory canals are patent septum is in the midline nose is without discharge oral mucosa is pink and moist without lesion. NECK: Supple no rigidity no lymphadenopathy no thyromegaly no carotid bruits no JVD no masses. HEART: Regular rate and rhythm I do not appreciate any ectopy or rub. No murmur. LUNGS: Coarse bilaterally with bilateral expiratory wheezes. I do not appreciate any rhonchi or rales. The patient was a smoker but quit smoking in 2007. ABDOMEN: Soft nontender, no rebound, no peritoneal signs, positive bowel sounds, no appreciable organomegaly. EXTREMITIES: Intact, no peripheral cyanosis, clubbing or edema. Strength is 5 out of 5 in extremities x4. NEUROLOGICAL: Cranial nerves II through XII are grossly intact with no focal deficit elicited upon examination. No tremor. Results & Data Results & Data Vital Signs (Past 12 Hours) Vital Signs Temp Pulse Pulse Resp BP Pulse Ox O2 Del Method 03/26/24 15:42 114 H 25 H 96 High Flow Nasal Cannula 03/26/24 15:30 134/91 03/26/24 15:15 113 H 13 135/91 97 High Flow Nasal Cannula 03/26/24 15:00 113 H 17 125/89 94 High Flow Nasal Cannula 03/26/24 14:33 113 H 27 H 95 03/26/24 14:33 111 H 03/26/24 14:15 114 H 14 132/88 94 High Flow Nasal Cannula 03/26/24 13:45 114 H 33 H 125/88 93 High Flow Nasal Cannula 03/26/24 13:30 115 H 27 H 129/99 94 High Flow Nasal Cannula 03/26/24 13:15 127/86 03/26/24 13:15 117 H 22 127/86 94 High Flow Nasal Cannula 03/26/24 13:00 117 H 28 H 92 High Flow Nasal Cannula 03/26/24 12:45 118 H 24 119/84 91 High Flow Nasal Cannula 03/26/24 12:15 125/81 03/26/24 12:07 118 H 22 94 High Flow Nasal Cannula 03/26/24 12:00 119 H 24 123/80 94 High Flow Nasal Cannula 03/26/24 11:45 121 H 21 122/97 94 High Flow Nasal Cannula 03/26/24 11:30 137/101 H 03/26/24 11:30 137/101 H 03/26/24 11:15 121/76 03/26/24 11:00 101 H 24 120/82 96 Nasal Cannula 03/26/24 10:30 106 H 20 118/82 92 Nasal Cannula 03/26/24 10:26 36.7 C 03/26/24 10:16 106 H 03/26/24 10:15 105 H 24 123/87 94 Nasal Cannula 03/26/24 10:05 93 Nasal Cannula 03/26/24 10:01 106 H 28 H 111/84 93 Nasal Cannula 03/26/24 10:00 109 H 30 H 93 Nasal Cannula 03/26/24 09:50 106 H 28 H 134/94 93 Nasal Cannula 03/26/24 09:40 106 H 28 H 152/93 H 93 Nasal Cannula 03/26/24 09:39 93 Nasal Cannula 03/26/24 09:29 36.3 C L 109 H 22 134/88 92 Nasal Cannula O2 Flow Rate FiO2 03/26/24 15:42 03/26/24 15:30 03/26/24 15:15 03/26/24 15:00 03/26/24 14:33 03/26/24 14:33 03/26/24 14:15 03/26/24 13:45 03/26/24 13:30 03/26/24 13:15 03/26/24 13:15 03/26/24 13:00 25 03/26/24 12:45 25 03/26/24 12:15 03/26/24 12:07 25 40 03/26/24 12:00 25 03/26/24 11:45 25 03/26/24 11:30 03/26/24 11:30 03/26/24 11:15 03/26/24 11:00 4 03/26/24 10:30 4 03/26/24 10:26 03/26/24 10:16 03/26/24 10:15 4 03/26/24 10:05 4 03/26/24 10:01 4 03/26/24 10:00 4 03/26/24 09:50 4 03/26/24 09:40 4 03/26/24 09:39 4 03/26/24 09:29 3 Code Status & VTE Plan Code Status Full code: I personally discussed with patient at the bedside today. PG Care Time/CCT Total # of Minutes Spent Total Time Spent with Patient: Total time spent is greater than 50% in coordination of care (as documented) at patient's floor/unit and/or counseling patient: Coding Level of Care Code 72636 INT INP/OBS CARE 75MIN Diagnoses Acute hypoxemic respiratory failure J96.01
[2024-03-26] MEDS: HEPARIN SOD (PORCINE) 1000 UNIT/ML IV ONE (17:11)
--- NOTE | 2024-03-26 17:13 | Ultrasound Report ---
REASON FOR EXAM: Respiratory issues. COMPARISON: None BILATERAL LOWER EXTREMITY DEEP VEIN DOPPLER SONOGRAPHY: Combining two dimension imaging and pulsed doppler, audio, spectral and color flow analysis, the deep venous systems of the lower extremities were evaluated. There is excellent compression of the deep venous structures. Normal venous waveforms are found. Normal response to digital augmentation is demonstrated. IMPRESSION: Normal deep venous study. No evidence for deep vein thrombosis. Electronically signed by James Victoria 03-26-2024 5:13 PM
[2024-03-26] MEDS: HEPARIN 25000 UNIT/500 ML 25,000 UNITS/500 ML BAG IV SCH (17:15)
[2024-03-26] MEDS: Heparin IV Adult Wt-Based Standard w/ INITIAL Bolus Protocol IV STA (17:31)
--- NOTE | 2024-03-26 18:13 | Discharge Summary ---
Discharge Summary Date of Service March 26, 2024 Principal Dx & Hospital Course #1 = Principal Diagnosis Admission HPI Per Admitting Provider This is a 53-year-old female with a very complex past medical history including scleroderma which resulted into bilateral lung transplantation in December 2022. This took place at [facility] the donor was a 30-year-old patient. Thursday of this week (5 days ago) the patient underwent routine bronchoscopy at [facility] status post lung transplantation. This apparently was a routine without complication. She was notified that she did test positive for RSV. She was asymptomatic at that time. Over the last 24 hours to 36 hours she has been getting increased shortness of breath came to the ER for further evaluation and treatment. She is typically oxygen independent. She has been escalated to high flow oxygen therapy currently on 25 L at 40% FiO2. Labs in our ER did demonstrate RSV positivity otherwise her [employer] respiratory panel was negative. Laboratory data including CBC and CMP were unremarkable. Urinalysis was negative. Chest x-ray was positive for vague groundglass opacities in the right lung. Question pneumonitis versus viral etiology versus pneumonia. Course in the ER she received methylprednisone 40 mg. IV azithromycin. IV cefepime. Several hours ago were initially contacted by the ER attending to request admission to [facility]. We recommended contacting the transplant center first as well as local pulmonology. [facility] has accepted the patient on transfer but per the ER attending they are reporting that at least going to be 48 hours till a bed is available. Local pulmonology was consulted they are requesting a CTA. Appropriate IV access is felt to be obtained in the ER to obtain CTA. I personally discussed this with pulmonology attending container coordinator and recommendation has been made to empirically heparinize the patient until we can get a CTA. In the interim we will do lower extremity duplexes. Therefore at this time due to the fact it does appear to be an extended hold waiting on an inpatient bed at the tertiary care center, and studies have shown that increase length of stay in the ER increases morbidity and mortality, we will go ahead admit the patient to the ICU while awaiting transfer. The patient is fine with this plan of care I discussed this with her in depth. Discharge Plan Visit Data Patient Disposition: Admitted As Inpatient Discharge Instructions Interventions: ED Discharge Assessment Last Done: 03/26/24 17:46 Forms Stand Alone Forms: My [facility] Prescriptions Prescriptions: No Action famotidine 20 mg tablet 20 mg PO BID Qty: 60 2RF mycophenolate mofetil 500 mg tablet 500 mg PO Q12H Prevymis 480 mg tablet 480 mg PO DAILY multivitamin [One Daily Multivitamin] Tablet 1 tab PO DAILY acetaminophen [Tylenol] 325 mg tablet 325 mg PO QID PRN (Reason: Pain) prednisone 10 mg tablet 10 mg PO DAILY sodium chloride 3 % solution for nebulization 4 ml inhalation BID albuterol sulfate [Ventolin HFA] 90 mcg/actuation HFA aerosol inhaler 2 puff inhalation Q6H PRN (Reason: SOB) cholecalciferol (vitamin D3) 25 mcg (1,000 unit) capsule 25 mcg PO DAILY metronidazole 0.75 % cream 1 applic TOPICAL BID pantoprazole 40 mg Tablet,Delayed Release (Dr/Ec) 40 mg PO DAILY Qty: 0 0RF trazodone 50 mg Tablet 25 mg PO HS PRN (Reason: Sleep) sulfamethoxazole-trimethoprim 400-80 mg tablet 1 tab PO DAILY citalopram 10 mg tablet 10 mg PO DAILY valacyclovir 500 mg tablet 500 mg PO DAILY metoclopramide HCl 5 mg tablet 5 mg PO Q8H lansoprazole 30 mg capsule,delayed release(DR/EC) 30 mg PO QAM tacrolimus 1 mg capsule 2 mg PO Q12H tacrolimus 0.5 mg capsule 0.5 mg PO DAILY Referrals Referrals: Peter Larsen DO [Primary Care Provider] - Hospital Stay Data Consultations 03/26/24 12:39 ED Decision to Admit Stat 03/26/24 15:29 Consult Pulmonology Stat Diagnostic Imagining Performed 03/26/24 16:14 US venous doppler [facility] Stat Home Health Attestation I certify that this patient is under my care and that I, or a physicians librarian assistant working with me, had a face to-face encounter that meets the home health [id number] encounter requirements with this patient. The encounter with the patient was in whole, or in part, for the following medical condition, which is the primary reason for home health care (list medical condition): I certify that, based on my findings, the following services are medically necessary home health services: My clinical findings support the need for the above services because: Further, I certify that my clinical findings support that this patient is homebound (i.e. absences from home require considerable and taxing effort and are for medical reasons or alevism services or infrequently or of short duration when for other reasons) because: Certification for Home Health Services: Based on the above findings, I certify that this patient is confined to the home and needs intermittent long term care, physical therapy and/or speech therapy or continues to need occupational therapy. The patient is under my care, and I have initiated the establishment of the plan of care. This patient will be followed by a physician who will periodically review the plan of care. Total Time Total Time Spent Total Time Spent (In Minutes): Less than 30 minutes. Coding
--- NOTE | 2024-03-26 18:19 | Discharge Summary ---
Discharge Summary Date of Service March 26, 2024 Principal Dx & Hospital Course #1 = Principal Diagnosis (1) Acute hypoxemic respiratory failure: Plan Please refer to my H&P from today's date approximately 90 minutes to 2 hours a go. In short 53-year-old female double lung transplant 13 months ago. Excepted to inpatient transplant center at [facility]. We are informed by the ER attending the per the transplant center was going to be at least 48 hours until a bed was available. Approximately 90 minutes after admission a bed became available and the patient will be departing [facility] patient is a rides available which appears to be probably within the next hour. Exam is unchanged. Plan of care is unchanged from my H&P please refer to that document again from approximately 90 minutes ago on today's date. Copy and paste from my H&P assessment and plan below: "Assessment: 1. Acute hypoxemic respiratory failure. Pulmonary toilet as described below. This is in the setting of a subacute bilateral lung transplantation a took place at [facility] December 2022. The patient is excepted on transfer to [facility] as an inpatient. ER has told us that this is gone to be at least a 48-hour wait per the transplant attending at [facility] therefore request has been made for admission locally while we are awaiting transfer. Will meet the patient to the critical care unit. Pulmonology is already been consulted and evaluated patient. 2. Acute respiratory syncytial virus. Supportive quick care and pulmonary toilet as discussed. Nebulizers. Oxygen therapy. 3. Rule out concomitant bacterial pneumonia. She is status post bronchoscopy 5 days ago is a routine posttransplant bronchoscopy. MRSA screen. If positive add vancomycin. In the interim per the ER attending transplant center recommending continuation of cefepime and azithromycin. Sputum cultures have been ordered. Patient is on chronic steroid therapy she received Solu-Medrol in the ER. I do not see a need for stress dose steroids. She is been normotensive. If this should change stress dose hydrocortisone should be considered at 100 mg IV every 6 hours. 4. Concern for pulmonary embolism. Again extensive conversation with pulmonology on-call. Recommending CTA. Appropriate IV access yet to be obtained. Therefore ultrasounds of lower extremities been ordered. And empiric heparinization will take place until we can sure there is no PE. She is tachycardic. Will do an echocardiogram to see if there is any right heart strain. 5. Scleroderma. 6. Ex tobacco abuse quit smoking in 2007. 7. GERD. Continue PPI. 8. Status post lung transplantation as discussed above. Per the transplant center and the ER attending they are recommending holding mycophenolate. Will continue tacrolimus and get a level. 9. Anxiety. Continue anxiolytic. 10. Chronic suppressive therapy due to lung transplantation with Bactrim and valacyclovir. Will continue as on chronically. Plan: As discussed above. Please refer to orders for further planning. Again, extensive mount of time spent in the coordination of care of this patient today discussing with the ER attending at least on 5 separate occasions as well as pulmonology on-call locally on Dr. Derrick Ragsdale Communication". Discharge Exam See my H&P from 90 minutes ago Discharge Plan Discharge Items Patient Disposition: Transfer Acute Care Hospital Reason For Visit: RSV / BILATERAL LUNG TRANSPLANT, HYPOXIA Discharge Diagnosis: Acute hypoxemic respiratory failure secondary to RSV Condition on Discharge: Critical Activity: As commented below Non-emergency contact: Specialist Call non-emergency contact if: you have any medication questions Follow-up/Referrals: Peter Larsen, [Primary Care Provider] - Diet: Heart Healthy Addtl Attending Provider Instructions: Will be provided upon discharge from tertiary care center Pending Studies at Discharge: No Stand-Alone Forms: My [facility] [id number] Skilled Items Patient informed of condition?: Yes DNR: No Discharge Level of Care: Other Communicable Disease: Yes Discharge Prognosis: Stable Lines: Peripheral IV Medications and DC Order Prescriptions: Continued famotidine 20 mg tablet 20 mg PO BID Qty: 60 2RF Prevymis 480 mg tablet 480 mg PO DAILY multivitamin [One Daily Multivitamin] Tablet 1 tab PO DAILY acetaminophen [Tylenol] 325 mg tablet 325 mg PO QID PRN (Reason: Pain) prednisone 10 mg tablet 10 mg PO DAILY sodium chloride 3 % solution for nebulization 4 ml inhalation BID albuterol sulfate [Ventolin HFA] 90 mcg/actuation HFA aerosol inhaler 2 puff inhalation Q6H PRN (Reason: SOB) cholecalciferol (vitamin D3) 25 mcg (1,000 unit) capsule 25 mcg PO DAILY metronidazole 0.75 % cream 1 applic TOPICAL BID pantoprazole 40 mg Tablet,Delayed Release (Dr/Ec) 40 mg PO DAILY Qty: 0 0RF trazodone 50 mg Tablet 25 mg PO HS PRN (Reason: Sleep) sulfamethoxazole-trimethoprim 400-80 mg tablet 1 tab PO DAILY citalopram 10 mg tablet 10 mg PO DAILY valacyclovir 500 mg tablet 500 mg PO DAILY metoclopramide HCl 5 mg tablet 5 mg PO Q8H lansoprazole 30 mg capsule,delayed release(DR/EC) 30 mg PO QAM tacrolimus 1 mg capsule 2 mg PO Q12H tacrolimus 0.5 mg capsule 0.5 mg PO DAILY Held mycophenolate mofetil 500 mg tablet 500 mg PO Q12H Hold Instructions: Resume on 04/09/24. HOLD in the setting of RSV infection / hypoxia Discharge Orders: Discharge Order (Routine); Ordered 03/26/24 Ordered By: Obed Thakkar Admission Data Admit Date/Time: 03/26/24 16:13 Attending Provider: Obed Thakkar Admit Provider: Obed Thakkar Primary Care Provider: Peter Larsen Other Providers: Obed Thakkar; Nalini Camacho Hospital Stay Data Consultations 03/26/24 12:39 ED Decision to Admit Stat 03/26/24 15:29 Consult Pulmonology Stat Diagnostic Imagining Performed 03/26/24 16:14 US venous doppler [facility] Stat Discharge Instructions Given to Patient (Per Discharging Provider) Will be provided upon discharge from tertiary care center Total Time Total Time Spent Total Time Spent (In Minutes): Less than 30 minutes Coding Level of Care Code None Diagnoses Acute hypoxemic respiratory failure J96.01
[2024-03-26] MEDS ORDERED: LEVALBUTEROL 1.25 MG/3 ML NEB NEB PRN (18:27)
[2024-03-26] MEDS ORDERED: METOCLOPRAMIDE HCL 5 MG TABLET PO SCH (18:27)
[2024-03-26] MEDS ORDERED: ICU Protocol for HYPERglycemia SCH (18:27)
[2024-03-26] MEDS ORDERED: ALBUTEROL HFA 8 GM INHALER INH PRN (18:27)
[2024-03-26] MEDS ORDERED: SODIUM CHLOR 7% 4 ML NEB NEB SCH (19:00)
[2024-03-26] MEDS ORDERED: CEFEPIME 2000MG 2,000 MG/20 ML SYR IV SCH (19:00)
[2024-03-26] MEDS: TACROLIMUS 1 MG CAP PO SCH (19:36)
[2024-03-26] MEDS: COUGH DROP (SUGAR FREE) LOZ 24 LOZ/1 BOX BUCCAL PRN (19:37)
[2024-03-26] MEDS: ACETAMINOPHEN 325 MG TAB PO PRN (19:47)
[2024-03-26 20:02] VITALS: BP 126/93; PULSE 104; RESP 25; O2SAT 96
[2024-03-26] MEDS ORDERED: FAMOTIDINE 20 MG TAB PO SCH (21:00)
[2024-03-26] MEDS ORDERED: metroNIDAZOLE 0.75% TOPICAL GEL 45 GM TUBE TOP SCH (21:00)
--- NOTE | 2024-03-27 08:57 | Electrocardiogram Report ---
Test Reason : Blood Pressure : */* mmHG Vent. Rate : 108 BPM Atrial Rate : 108 BPM P-R Int : 162 ms QRS Dur : 76 ms QT Int : 336 ms P-R-T Axes : 55 63 56 degrees QTcB Int : 450 ms Sinus tachycardia Borderline ECG When compared with ECG of 13-Dec-2023 17:20, No significant change Confirmed by Amadou Silva ([id number]) on 03/27/2024 8:56:24 AM Referred By: REFERRED SELF Confirmed By: Amadou Silva
[2024-03-27] MEDS ORDERED: MULTIVITAMIN TAB PO SCH (09:00)
[2024-03-27] MEDS ORDERED: valACYclovir HCL 500 MG TABLET PO SCH (09:00)
[2024-03-27] MEDS ORDERED: TACROLIMUS 0.5 MG CAP PO SCH (09:00)
[2024-03-27] MEDS ORDERED: SULFA/TRIMETH 400/80MG TAB PO SCH (09:00)
[2024-03-27] MEDS ORDERED: CITALOPRAM 20 MG TAB PO SCH (09:00)
[2024-03-27] MEDS ORDERED: predniSONE 10 MG TABLET PO SCH (09:00)
[2024-03-27] MEDS ORDERED: PANTOprazole 40 MG TAB PO SCH ×2 (09:00)
[2024-03-27] MEDS ORDERED: AZITHROMYCIN 500 MG VIAL IV SCH (13:15)
[2024-03-27] MEDS ORDERED: AZITHROMYCIN 500 MG in SODIUM CHLORIDE 0.9% 250 ML IV SCH (13:15)
== END 2024-03-26 19:30 | disposition short-term general hospital (02) | DRG 205 ==
LOC: ED 09:25 → EDINP 16:13